=== PATIENT | female | born 1975 | race Caucasian/White ===

== ENCOUNTER → 2024-05-29 13:22 | Outpatient (BNV) | payer OTHER, SELFPAY | PROVIDERS: PCP Family Medicine; Referring Provider Family Medicine; Visit Provider Nurse Practitioner Family | DX: D64.9 Anemia, unspecified (principal) | CPT/HCPCS: 99204 ==

== ENCOUNTER 2024-06-06 15:00 | Outpatient (RCR) | payer OTHER, SELFPAY ==
[2024-05-30 15:05] VITALS: BP 155/95; PULSE 108; RESP 18; TEMP 36.2
[2024-05-30] MEDS: Magnesium Sulfate/H2O 2 GM/50 ML PIGGYBACK IV (15:15)
[2024-05-30] MEDS: Ferric Carboxymaltose 750 MG in 0.9 % Sodium Chloride 250 ML 530 MG IV (16:09)
[2024-05-30 16:16] VITALS: BP 134/88; PULSE 99; RESP 16
[2024-06-06 15:03] VITALS: BP 146/89; PULSE 117; RESP 18; TEMP 36.2
[2024-06-06 15:18] LABS: Hematocrit 32.8 % (37.0-47.0); Hemoglobin 9.6 g/dl (12.0-16.0); Mean Corpuscular HGB Conc 29.3 g/dl (31.0-35.0); Mean Corpuscular Hemoglobin 20.8 pg (27.0-33.0); Mean Platelet Volume 9.7 fL (9.4-12.3); Platelet Count 432 X10*3/uL (160-400); Red Blood Count 4.62 X10*6/uL (4.20-5.50); Red Cell Distribution Width 22.5 % (11.0-16.0); White Blood Count 12.3 X10*3/uL (4.8-10.8)
[2024-06-06] MEDS: Acetaminophen 325 MG TABLET 650 MG PO (15:20)
[2024-06-06] MEDS: Ferric Carboxymaltose 750 MG in 0.9 % Sodium Chloride 250 ML 1060 MG IV (15:33)
[2024-06-06 15:39] LABS: Alanine Aminotransferase 27 U/L (0-31); Albumin Level 3.9 g/dL (3.5-5.0); Anion Gap 11 (12-20); Aspartate Amino Transferase 34 U/L (5-31); Bilirubin Total 0.4 mg/dL (0.0-1.0); Blood Urea Nitrogen 15 mg/dL (9-16); Calcium 9.5 mg/dL (8.4-10.2); Carbon Dioxide 26 mmol/L (22-29); Chloride 105 mmol/L (96-108); Estimated Glomerular Filt Rate > 60; Glucose Random 157 mg/dL (60-115); Magnesium 1.7 mg/dL (1.6-2.6); Potassium 3.8 mmol/L (3.3-5.1); Sodium 138 mmol/L (135-145); Total Protein 7.5 g/dL (6.5-8.0)
[2024-06-06 15:53] LABS: Ferritin 583 ng/mL (10-250)
[2024-06-06 17:01] LABS: Alkaline Phosphatase 66 U/L (39-117)
== END 2024-06-06 15:57 | disposition home or self-care (01) ==
LOC: HO.INF 15:00
PROVIDERS: Visit Provider Nurse Practitioner Family
DX: D64.9 Anemia, unspecified (principal)
CPT/HCPCS: 36415; 80053; 82728; 83735; 85027; 96365; J1439; J3475

== ENCOUNTER 2024-06-29 09:56 | Outpatient (REF) | payer OTHER, SELFPAY ==
--- OUTSIDE RECORDS SUMMARY | 2024-06-29 09:59 | XMS_ITS | Data Portability ---
Author Organization [facility], , [facility] Address [address] [place] [address] Care Team Providers Care Sba Business Development Officer Name Role Phone STAN JARRELL Primary Care Provide r JENI MONTGOMERY Textile Machine Mechanic [facility] Certified Nurse [facility] Attendant [phone] MILANA ALEXANDER Dialysis Nurse [facility] Dermatologis t ROSANNA BLACKWELL Neurologist [facility] Urologist [facility] Billing Adjudicator [facility] HEMATOLOGY/ONCOLOGY Hemat ology/Oncology Assessment No assessment recorded. Plan of Treatment Reminders Order Date Submit Date Provider Last Modified By Organization Details Last Modified Time Details Appointments LAB Follow-Up 2024 07:20A [facility] Lab Not available Not available Not available LAB Follow-Up 2024 10:00A M [facility] Lab Not available Not available Not available Wellness Visit 30 2024 03:00P M Stan Nelson MD Not available Not available Not available Lab ferritin, serum or plasma 2024 025 [facility], [address] [place], [address], 05/24/2024 11:11:20 iron + total iron-bind ing capacity (TIBC), serum 2024 025 [facility], [address] [place] [address], [id number], 05/24/2024 15:38:45 vitamin B12, serum 2024 025 [facility], [address] [place] [address], [id number], 05/29/2024 14:35:06 retic count, blood 2024 025 [facility], [address] [place] [address], [id number], 05/24/2024 09:55:16 influenza virus A + B + SARS-CoV- 2 (COVID19) Ag panel, rapid IA, upper respirato ry specimen [address] [facility], [address] [place] [address], [id number], 05/10/2024 08:05:37 TSH, serum or plasma 2024 025 [facility], [address] [place] [address], [id number], 06/07/2024 03:01:59 fecal occult blood, immunoass ay, stool - pls mail to pt [address] [facility], [address] [place] [address], [id number], 05/23/2024 15:41:05 TSH, serum or plasma 2024 025 [facility], [address] [place] [address], [address], 04/10/2024 14:50:35 HbA1c (hemoglob in A1c), blood 2024 025 [facility], [address] [place] [address], [id number], 04/10/2024 12:53:48 CBC 2024 025 [facility], [address] [place] [address], [id number], 04/10/2024 11:18:00 BMP, serum or plasma 2024 [facility], [address] [place] [address], [id number], 04/11/2024 15:35:17 Referral gastroent erologist referral - microcyti c anemia since 2021. ? GI source. 2024 025 YRN Not available 06/28/2024 09:49:52 Procedures None recorded. Surgeries None recorded. Imaging None recorded. Medication Orders Symbicort 160 mcg-4.5 mcg/actua tion HFA aerosol inhaler 2024 [facility] [id number], [address] [place] [address], [id number], 05/22/2024 16:57:23 Ozempic 1 mg/dose (4 mg/3 mL) subcutane ous pen injector 2024 [id number], [address], [place], [id number], 04/12/2024 16:16:35 Slow Fe 137 mg (45 mg iron) tablet,ex tended release 2024 [facility] #[id number], [address], [place], [id number], 04/12/2024 16:00:05 Patient TargetsNo targets recorded. Patient Instructions Encounter Date Encounter Id Patient Instructions Last Modified By Organization Details Last Modified Time 04/12/2024 [id number] Follow-up in one month to assess response to changes in medication. Blood work in two months to check TSH. [email or web address] Not available 04/14/2024 09:06:51 [email or web address] Not available 04/14/2024 09:06:53 Reason for Referral Billing Adjudicator Referral for Nausea and vomiting microcytic anemia since 2021. ? GI source. Referring Physician: Nicolás Dwyer, Family Medicine, Encounter Date: 05/22/2024 Results Created Date Observation Date Name Description Value Unit Range Abnormal Flag Note LastModifiedBy Organization Detail LastModifiedTime 04/10/1904/10/2024 CBC WBC 9.79 K/? ? ?L 3.98-1 0.04 Not Available [address], [address], 04/10/2024 11:18:00 04/10/1904/10/2024 CBC RBC 4.33 M/? ? ?L 3.93-5 .22 Not Available [address], [address], 04/10/2024 11:18:00 04/10/1904/10/2024 CBC HGB 8.4 g/dL 11.2-1 5.7 low Not Available [address], [address], 04/10/2024 11:18:00 04/10/1904/10/2024 CBC HCT 30.1 % 34.1-4 4.9 low Not Available [address], [address], 04/10/2024 11:18:00 04/10/19 25 04/10/2024 CBC MCV 69.5 fL 79.4-9 4.8 low Not Available [address], [address], 04/10/2024 11:18:00 04/10/1904/10/2024 CBC MCH 19.4 pg 25.6-3 2.2 low Not Available [address], [address], 04/10/2024 11:18:00 04/10/19 25 04/10/2024 CBC MCHC 27.9 g/dL 32.2-3 5.5 low SREV= Slide revie wed by [facility]. Not Available [address], [address], 04/10/2024 11:18:00 04/10/1904/10/2024 CBC plt 466 K/? ? ?L 182-36 9 high Not Available [address], [address], 04/10/2024 11:18:00 04/10/1904/10/2024 CBC MPV 10.5 fL 9.4-12 .3 Not Available [address], [address], 04/10/2024 11:18:00 04/10/1904/10/2024 CBC neut% 69.2 % 34.0-7 1.1 Not Available [address], [address], 04/10/2024 11:18:00 04/10/1904/10/2024 CBC neut# 6.77 1.56-6 .13 high Not Available [address], [address], 04/10/2024 11:18:00 04/10/1904/10/2024 CBC lymph % 22.2 % 19.3-5 1.7 Not Available [address], [address], 04/10/2024 11:18:00 04/10/1904/10/2024 CBC lymph # 2.17 K/? ? ?L 1.18-3 .74 Not Available [address], [address], 04/10/2024 11:18:00 04/10/1904/10/2024 CBC mono% 5.6 % 4.7-12 .5 Not Available [address], [address], 04/10/2024 11:18:00 04/10/1904/10/2024 CBC mono# 0.55 0.24-0 .56 Not Available [address], [address], 04/10/2024 11:18:00 04/10/1904/10/2024 CBC eo% 1.8 % 0.7-5. 8 Not Available [address], [address], 04/10/2024 11:18:00 04/10/1904/10/2024 CBC eo# 0.18 0.04-0 .36 Not Available [address], [address], 04/10/2024 11:18:00 04/10/1904/10/2024 CBC baso% 0.8 % 0.1-1. 2 Not Available [address], [address], 04/10/2024 11:18:00 04/10/1904/10/2024 CBC baso# 0.08 0.00-0 .08 Not Available [address], [address], 04/10/2024 11:18:00 04/10/1904/10/2024 CBC RDW-CV 17.1 % 11.7-1 4.4 high Not Available [address], [address], 04/10/2024 11:18:00 04/10/1904/10/2024 CBC Ig% 0.400 % 0.000- 1.500 Ig % >0.5 Indic ates possi ble Left Shift Not Available [address], [address], 04/10/2024 11:18:00 04/10/1904/10/2024 CBC Ig# 0.040 0.000- 0.093 Not Available [address], [address], 04/10/2024 11:18:00 04/10/19 25 04/10/2024 CBC NRBC% 0.0 % 0.0-0. 2 Not Available [address], [address], 04/10/2024 11:18:00 04/10/19 25 04/10/2024 CBC NRBC# 0.000 0.000- 0.012 Not Available [address], [address], 04/10/2024 11:18:00 04/10/19 25 04/10/2024 HGB A1C hemoglobin A1C 9.5 % 4.8-6. 0 high Goal: <7% in Patie nts with Diabe gomez An A1c betwe en 5.7-6 .4% is ident ified as pre-d iabet es and sugge sts risk for progr essio n to diabe gomez Two a1c value s of 6.5% or highe r is consi stent with a diagn osis of diabe gomez but may need furth er confi rmati on Not Available [address], [address], 04/10/2024 12:53:48 04/10/19 25 04/10/2024 HGB A1C estimated average glucose 226.0 mg/dL Not Available [address], [address], 04/10/2024 12:53:48 04/10/1904/10/2024 TSH TSH 5.24 uIU/m L 0.50-6 .00 The Ameri can Colle ge of Endoc rinol ogy and Ameri can Thyro id Assoc iatio n recom mend goal TSH value s betwe en 0.4-4 .0 mIU/m L. Not Available [address], [address], 04/10/2024 14:50:35 04/10/19 25 04/11/2024 MICRO ALBUM IN/CR EATIN INE RATIO PANEL , URINE microalbumin 589.1 mg/L 1.3-20 .0 high VERD= Verif ied by Dilut ion. Not Available [address], [address], 04/11/2024 12:11:40 04/10/19 25 04/11/2024 MICRO ALBUM IN/CR EATIN INE RATIO PANEL , URINE creatinine urine 198.6 mg/dL 30.0-1 25.0 high Not Available [address], [address], 04/11/2024 12:11:40 04/10/19 25 04/11/2024 MICRO ALBUM IN/CR EATIN INE RATIO PANEL , URINE microalb/cre at ratio 296.6 mg/g_ creat 0.0-29 .0 high Not Available [address], [address], 04/11/2024 12:11:40 04/10/19 25 04/11/2024 BASIC METAB OLIC PANEL glucose 140 mg/dL 70-100 high Not Available [address], [address], 04/11/2024 15:35:17 04/10/19 25 04/11/2024 BASIC METAB OLIC PANEL BUN 12 mg/dL 7-18 Not Available [address], [address], 04/11/2024 15:35:17 04/10/19 25 04/11/2024 BASIC METAB OLIC PANEL creatinine 0.8 mg/dL 0.8-1. 3 Not Available [address], [address], 04/11/2024 15:35:17 04/10/19 25 04/11/2024 BASIC METAB OLIC PANEL B/C 15.0 ratio Not Available [address], [address], 04/11/2024 15:35:17 0104/11/2024 BASIC METAB OLIC PANEL GFR >=60ML /MIN mL/mi n normal >=60m L/min - Alia l or midly reduc ed <60mL /min- Decre ased kidne y funct ion <15mL /min - Kidne y failu re [facility] calcu lates estim ated Glome rular Filtr ation Rate (eGFR ) using the Chron ic Kidne y Disea se Epide miolo gy Colla borat ion (CKD- EPI) Equat ion (Inke r et. al 2020) as recom patt d by the Natio nal Kidne y Found ation . eGFR is based on age, serum creat inine , and sex. CKD-E PI does not calcu late eGFR by race, does not apply to child omero (age <18 years ), and shoul d not be used in pregn markus. Not Available [address], [address], 04/11/2024 15:35:17 04/10/1904/11/2024 BASIC METAB OLIC PANEL sodium 142 mmol/ L 136-14 5 Not Available [address], [address], 04/11/2024 15:35:17 04/10/19 25 04/11/2024 BASIC METAB OLIC PANEL potassium 3.8 mmol/ L 3.5-5. 1 Not Available [address], [address], 04/11/2024 15:35:17 04/10/1904/11/2024 BASIC METAB OLIC PANEL chloride 100 mmol/ L 96-107 Not Available [address], [address], 04/11/2024 15:35:17 04/10/1904/11/2024 BASIC METAB OLIC PANEL anion gap 12.5 5.0-15 .0 Not Available [address], [address], 04/11/2024 15:35:17 04/10/1904/11/2024 BASIC METAB OLIC PANEL CO2 30 mmol/ L 21-32 Not Available [address], [address], 04/11/2024 15:35:17 04/10/19 25 04/11/2024 BASIC METAB OLIC PANEL calcium 8.8 mg/dL 8.5-10 .3 Not Available [address], [address], 04/11/2024 15:35:17 04/10/1904/11/2024 LIPID PANEL cholesterol 191 mg/dL <200 mg/dl Lynn able 200-2 39 mg/dl Borde rline High >240 mg/dl High Not Available [address], [address], 04/11/2024 15:35:18 04/10/1904/11/2024 LIPID PANEL triglyceride s 135 mg/dL <150 mg/dL Alia l 150-1 99 mg/dL Borde rline High 200-4 99 mg/dL High >500 mg/dL Very High Not Available [address], [address], 04/11/2024 15:35:18 04/10/1904/11/2024 LIPID PANEL direct HDL 40 mg/dL <40 mg/dl - Major Risk for CHD >60 mg/dl - Negat zully Risk for CHD Not Available [address], [address], 04/11/2024 15:35:18 04/10/1904/11/2024 LDL - CALCU LATED LDL - calculated 124 RISK CATEG ORY LDL GOAL _ CHD or CHD Risk Equiv alent s <100 mg/dl (10-y ear risk >20%) 2+ Risk Facto rs <130 mg/dl (10-y ear risk <= 20%) 0-1 Risk Facto r? <160 mg/dl ? Almos t all peopl e with 0-1 risk facto r have a 10 year risk <10%, thus 10 year risk asses ment in peopl e with 0-1 risk facto r is not chelita escobar. Not Available [address], [address], 04/11/2024 15:35:19 05/09/1905/09/2024 POC FLU/S ARS flu A POC NEGATI VE Not Available [facility] [address] [place] [address], [address], 05/09/2024 16:06:13 05/09/1905/09/2024 POC FLU/S ARS flu B POC POSITI VE positive Not Available [facility] [address] [place] [address], [address], 05/09/2024 16:06:13 05/09/1905/09/2024 POC FLU/S ARS sars POC NEGATI VE Not Available [facility] [address] [place] [address], [address], 05/09/2024 16:06:13 05/23/1905/24/2024 HGB A1C hemoglobin A1C 8.3 % 4.8-6. 0 high Goal: <7% in Patie nts with Diabe gomez An A1c betwe en 5.7-6 .4% is ident ified as pre-d iabet es and sugge sts risk for progr essio n to diabe gomez Two a1c value s of 6.5% or highe r is consi stent with a diagn osis of diabe gomez but may need furth er confi rmati on Not Available [address], [address], 05/24/2024 09:29:13 05/23/19 25 05/24/2024 HGB A1C estimated average glucose 191.5 mg/dL Not Available [address], [address], 05/24/2024 09:29:13 05/23/19 25 05/24/2024 RBC MORPH OLOGY hypochrom Few Not Available [address], [address], 05/24/2024 09:54:30 05/23/19 25 05/24/2024 RBC MORPH OLOGY micro Modera te Not Available [address], [address], 05/24/2024 09:54:30 05/23/19 25 05/24/2024 CBC WBC 10.61 K/? ? ?L 3.98-1 0.04 high Not Available [address], [address], 05/24/2024 09:55:15 05/23/19 25 05/24/2024 CBC RBC 4.30 M/? ? ?L 3.93-5 .22 Not Available [address], [address], 05/24/2024 09:55:15 05/23/19 25 05/24/2024 CBC HGB 8.2 g/dL 11.2-1 5.7 low Not Available [address], [address], 05/24/2024 09:55:15 05/23/19 25 05/24/2024 CBC HCT 29.6 % 34.1-4 4.9 low Not Available [address], [address], 05/24/2024 09:55:15 05/23/19 25 05/24/2024 CBC MCV 68.8 fL 79.4-9 4.8 low Not Available [address], [address], 05/24/2024 09:55:15 05/23/19 25 05/24/2024 CBC MCH 19.1 pg 25.6-3 2.2 low Not Available [address], [address], 05/24/2024 09:55:15 05/23/1905/24/2024 CBC MCHC 27.7 g/dL 32.2-3 5.5 low SREV= Slide revie wed by techn jamesjosi mcarthur. Not Available [address], [address], 05/24/2024 09:55:15 05/23/1905/24/2024 CBC plt 443 K/? ? ?L 182-36 9 high Not Available [address], [address], 05/24/2024 09:55:15 05/23/1905/24/2024 CBC MPV 10.8 fL 9.4-12 .3 Not Available [address], [address], 05/24/2024 09:55:15 05/23/1905/24/2024 CBC neut% 64.7 % 34.0-7 1.1 Not Available [address], [address], 05/24/2024 09:55:15 05/23/1905/24/2024 CBC neut# 6.87 1.56-6 .13 high Not Available [address], [address], 05/24/2024 09:55:15 05/23/1905/24/2024 CBC lymph % 26.1 % 19.3-5 1.7 Not Available [address], [address], 05/24/2024 09:55:15 05/23/1905/24/2024 CBC lymph # 2.77 K/? ? ?L 1.18-3 .74 Not Available [address], [address], 05/24/2024 09:55:15 05/23/19 25 05/24/2024 CBC mono% 6.0 % 4.7-12 .5 Not Available [address], [address], 05/24/2024 09:55:15 05/23/19 25 05/24/2024 CBC mono# 0.64 0.24-0 .56 high Not Available [address], [address], 05/24/2024 09:55:15 05/23/19 25 05/24/2024 CBC eo% 2.1 % 0.7-5. 8 Not Available [address], [address], 05/24/2024 09:55:15 05/23/1905/24/2024 CBC eo# 0.22 0.04-0 .36 Not Available [address], [address], 05/24/2024 09:55:15 05/23/1905/24/2024 CBC baso% 0.8 % 0.1-1. 2 Not Available [address], [address], 05/24/2024 09:55:15 05/23/1905/24/2024 CBC baso# 0.08 0.00-0 .08 Not Available [address], [address], 05/24/2024 09:55:15 05/23/1905/24/2024 CBC RDW-CV 17.2 % 11.7-1 4.4 high Not Available [address], [address], 05/24/2024 09:55:15 05/23/19 25 05/24/2024 CBC Ig% 0.300 % 0.000- 1.500 Ig % >0.5 Indic ates possi ble Left Shift Not Available [address], [address], 05/24/2024 09:55:15 05/23/1905/24/2024 CBC Ig# 0.030 0.000- 0.093 Not Available [address], [address], 05/24/2024 09:55:15 05/23/1905/24/2024 CBC NRBC% 0.0 % 0.0-0. 2 Not Available [address], [address], 05/24/2024 09:55:15 05/23/1905/24/2024 CBC NRBC# 0.000 0.000- 0.012 Not Available [address], [address], 05/24/2024 09:55:15 05/23/1905/24/2024 RETIC ULOCY TE COUNT reticulocyte count,auto 1.35 % 0.50-1 .70 Not Available [address], [address], 05/24/2024 09:55:16 05/23/1905/24/2024 RETIC ULOCY TE COUNT reticulocyte , absolute 0.0581 cells /uL 0.0164 -0.077 6 Not Available [address], [address], 05/24/2024 09:55:16 05/23/1905/24/2024 RETIC ULOCY TE COUNT irf% 21.7 % 3.0-15 .9 high Not Available [address], [address], 05/24/2024 09:55:16 05/23/1905/24/2024 RETIC ULOCY TE COUNT ret-he 21.3 pg 28.2-3 5.7 low Not Available [address], [address], 05/24/2024 09:55:16 05/23/19 25 05/24/2024 JUSTIN TIN ferritin 5 NG/mL 15-200 low YELENA=V erifi ed by Analisa campos Not Available [address], [address], 05/24/2024 11:11:20 05/23/19 25 05/24/2024 IRON PANEL iron 17 ug/dL 35-150 low Not Available [address], [address], 05/24/2024 15:38:45 05/23/19 25 05/24/2024 IRON PANEL T.I.B.C. 400 ug/dL 250-45 0 Not Available [address], [address], 05/24/2024 15:38:45 05/23/19 25 05/24/2024 IRON PANEL % saturation 4.3 % Not Available [address], [address], 05/24/2024 15:38:45 05/23/19 25 05/29/2024 VITAM IN B12 vitamin B12 411 pg/mL 230-10 50 Not Available [address], [address], 05/29/2024 14:35:06 06/12/19 25 06/12/2024 ANATO SHINE PATHO LOGY path report [facility] [address] [facility] [place] [address] Lab Direc tor: Erlin galeas MD Surgi joseph Patho logy Repor t Acces maggy #: [id number] FINAL PATHO LOGIC DIAGN OSIS: A. DUODE NUM, BIOPS Y: Intac t villo us archi tectu re with incre ased intra epith elial lymph ocyte s, nonsp ecifi c. Serol ogic corre latio n recom patt d. B. STOMA CH ANTRU M, POLYP S X 2: Two mildl y infla med hyper plast ic polyp s, 1 with focal intes tinal metap lasia . Negat zully for dyspl mike. C. STOMA CH ANTRU M, BIOPS Y: No patho logic abnor malit y. D. DISTA L ESOPH MERARY, BIOPS Y: Alia l squam ous mucos a. Katty ctron icall y Nida d Out By Erlin galeas MD By his/h er signa turbillie above , the patho logis t liste d as zara osorio the Final Diagn osis certi fies that he/sh e has perso gregorio revie wed this case and confi rmed or corre cted the diagn osis. [facility] Iron defic iency anemi a, Nause a with vomit ing SPECI MENS SUBMI TTED: A: DUODE NUM, BIOPS Y B: STOMA CH ANTRU M, POLYP S X 2 C: STOMA CH ANTRU M, BIOPS Y D: DISTA L ESOPH MERARY, BIOPS Y GROSS DESCR IPTIO N A. DUODE NUM, BIOPS Y: Recei laura in forma rachelle are multi ple irreg ular li-p ink soft tissu e fragm ents varyi ng in size from 0.1 x 0.1 x 0.1 cm up to 0.3 x 0.2 x 0.2 cm which are submi tted in toto in a singl e casse tte label ed A1. B. STOMA CH ANTRU M, POLYP S X 2: Recei laura in forma rachelle are 2 irreg ular li-p ink soft tissu e fragm ents measu ring 0.3 x 0.2 x 0.2 cm and 0.5 x 0.4 x 0.3 cm which are submi tted in toto in a singl e casse tte label ed B1 C. STOMA CH ANTRU M, BIOPS Y: Recei laura in forma rachelle are 2 irreg ular li-p ink soft tissu e fragm ents measu ring on avera ge 0.4 x 0.2 x 0.1 cm which are submi tted in toto in a singl e casse tte label ed C1. D. DISTA L ESOPH MERARY, BIOPS Y: Recei laura in forma rachelle is a 0.6 x 0.2 x 0.1 cm irreg ular porti on of li-p ink soft tissu e which is submi tted in toto in a singl e casse tte label ed D1. Gross ed by: Gaudencio bueno, MHS, PA( CP) LT 2024 Gross ing Staff : [id number] Yenfier nt Name: EVAN INGRAM : 976 (Age: 48) Sex: F 6 Insti tutio n: [facility] Locat ion: [facility] Date of Opera tion: 2024 Date of Acces maggy: 2024 Repor marcus: 2024 15:02 Resul ts To: Dayo walters MD, AB Anthony en Jonas العراقي MD, BS Not Available [facility] (Out[facility] [address] [place] [address], [address], 06/12/2024 17:52:04 Result Notes None recorded. Problems Name Problem SNOMED Code Status Onset Date Resolution Date Notes Provider Name and Address Organization Details Recorded Time Urinary incontin ence 527006889 Active Not Available [facility] 4 09:29:29 Postoper ative hypothyr oidism 46014979 Active 2007 Not Available [facility] 4 09:29:29 Acute sinusiti s 27342037 Completed 200702/13/2013 Tammy Lui PA-C [address] [place] [address], [phone] , [facility] 9 20:22:48 Urinary tract infectio us disease 23306113 Completed 02/13/2013 Not Available [facility] 3 02:01:58 Primary malignan t neoplasm of thyroid gland 06709978 Completed 200601/06/2023 ESTHER Gonzales [address] [place] [address], [phone] , [facility] 3 16:57:56 Acute pharyngi tis 878930003 Completed 200702/13/2013 Not Available [facility] 3 02:01:18 Amenorrh ea 65356329 Active Not Available [facility] 4 09:29:29 Nutritio nal deficien cy disorder 92320341 Active 2008 Not Available [facility] 4 09:29:30 Malaise and fatigue 776463848 Completed 200802/13/2013 Not Available [facility] 3 02:00:21 Allergic asthma without status asthmati cus 21158381 Active 2007 Not Available [facility] 4 09:29:30 Disorder of hair AND/OR hair follicle Active 2006 Not Available [facility] 4 09:29:29 Vaginiti s and vulvovag initis Completed 02/13/2013 Not Available [facility] 3 02:01:49 Left upper quadrant pain 842984537 Active Not Available [facility] 4 09:29:29 Left lower quadrant pain 642870254 Active Not Available [facility] 4 09:29:29 Acute sinusiti s 42887145 Completed 05/14/2018 Tammy Lui PA-C [address] [place] [address], [phone] , [facility] 9 20:22:48 Exercise -induced asthma 10928671 Active Not Available [facility] 4 09:29:29 Gastroes ophageal reflux disease 153922872 Active Not Available [facility] 4 09:29:29 Migraine with aura 4067440 Active 2017 Not Available [facility] 4 09:29:29 Uncontro lled type 2 diabetes mellitus 335163340 Active 2018 Not Available [facility] 4 09:29:29 Migraine 04059487 Completed 201903/16/2020 Removal Reason: revised Stan Nelson MD [address] [place] [address], [phone] , [facility] 0 11:21:18 Urolithi asis 94809849 Active 2021 Not Available [facility] 4 09:29:30 Pelvic kidney 91498229 Active [address] Falcon Not Available [facility] 4 09:29:30 Congenit al strictur e of ureterop elvic junction 74610212 Active 2021 Incident al on imaging, due to pelvic kidney, Dr Falcon, monitor Not Available [facility] 4 09:29:29 Morbid obesity 553019347 Active 2021 BMI > or = 35 plus diagnosi s of diabetes Not Available [facility] 4 09:29:29 History of malignan t neoplasm of thyroid 622343522 Active 2022 Not Available [facility] 4 09:29:29 Notes:Some problems listed i n Documents: #[id number], #[id number], #[id number], #[id number], #[id number], #[id number], #[id number], #[id number], #[id number] could not be added to this patient's chart. Please review these documents and add these problems to the patient's chart manually as needed. Problem Notes None recorded. Procedures Surgical History Date Name Laterality Status Provider Name and Address Organization Details Recorded Time 04/12/19 25 Cardiovascular disease risk reduction counseling completed Stan Nelson MD [address] [place] [address], [phone], [facility] 04/12/2024 16:03:06 08/07/19 24 Asthma Control Test (12 + years old) completed Stan Nelson MD [address] [place] [address], [id number], [facility] 08/07/2023 09:01:45 05/29/19 24 IV Therapy completed Sue Soriano RN MSN [facility] 05/29/2023 14:28:51 02/15/20 23 Insulin Teaching completed Nighat Carrillo RN BSN [facility] 02/14/2023 15:37:20 01/07/20 23 Cardiovascular disease risk reduction counseling completed ESTHER Gonzales [address] [place] [address], [id number], [facility] 01/06/2023 16:57:18 09/17/19 22 Asthma Control Test (12 + years old) completed Dana Haider [facility] 09/16/2021 09:11:35 09/22/19 21 prevention-cardiov ascular risk reduction counseling cancelled Diana Goff [facility] 09/15/2020 14:45:35 09/22/19 21 prevention-annual alcohol misuse screening cancelled Diana Goff [facility] 09/15/2020 14:45:35 03/16/20 20 Asthma Control Test (12 + years old) [facility]/16[facility] 10:31:08 01/23/20 20 Other (specify) completed Stan Nelson MD [address] [place] [address], [id number], [facility] 01/28/2020 12:54:07 01/23/20 20 Unlisted px accessory sinus completed Genevieve Rodriguez RN [facility] 07/09/2020 11:17:03 09/20/19 20 prevention-cardiov ascular risk reduction counseling completed Count includes the [facility] 09/20/2019 08:30:20 09/20/19 20 prevention-annual alcohol [facility] 08:30[facility]21 03/15/20 19 POC Strep Testing completed Page Mcdaniel [facility] 03/15/2019 09:26:56 03/01/20 19 Obesity counseling completed Stan Nelson MD [address] [place] [address], [phone], [facility] 03/03/2019 14:47:30 06/14/19 19 endoscopy completed Stan Nelson MD [address] [place] [address], [phone], [facility] 08/07/2023 17:12:16 05/26/19 19 Glucose Meter Teaching completed Genesis Mccarty LPN [facility] 05/25/2018 09:58:06 05/21/19 19 Asthma Control Test (12 + years old) completed Naima Muse [facility] 05/21/2018 08:40:19 05/14/19 19 POC Flu Testing completed Elenita Castro [facility] 05/14/2018 10:01:22 04/24/19 19 POC Flu Testing completed Nicolás Dwyer MD [address] [place], [phone], [facility] 04/24/2018 19:11:29 02/22/20 18 POC Strep Testing completed Letty Dill [facility] 02/21/2018 17:10:39 09/23/19 18 IV Therapy completed Shirley Vega [facility] 09/22/2017 17:06:09 11/04/19 17 35722: Therapeutic Exercise completed Bailey Hi, PT [address] [place], [phone], [facility] 11/06/2016 21:45:50 11/04/19 17 82201: Manual Therapy completed Bailey Hi, PT [address] [place], [phone], [facility] 11/06/2016 21:46:02 10/27/19 17 Physical Activity Counselling completed Bailey Hi, PT [address] [place], [phone], [facility] 10/31/2016 22:41:35 10/27/19 17 88397: PT Eval Low Complexity completed Bailey Hi, PT [address] [place], [phone], [facility] 10/31/2016 22:41:31 07/14/19 17 Asthma Control Test (12 + years old) completed Eleniat Castro [facility] 07/13/2016 11:08:31 07/17/19 13 IV Therapy completed Grace Mari [facility] 07/16/2012 13:49:11 03/27/18 96 Removal of thyroid completed Alvina Rubin LPN [facility] 01/05/2017 08:45:51 03/27/18 96 Other (specify) completed Milana Alexander MD [address] [place] [address], [phone], [facility] 01/05/2017 08:53:15 03/27/18 85 Other (specify) completed Milana Alexander MD [address] [place] [address], [phone], [facility] 01/05/2017 08:54:13 03/27/18 80 Removal of adenoids completed Milana Alexander MD [address] [place] [address], [phone], [facility] 01/05/2017 08:52:58 03/27/18 80 Ear Surgery completed Milana Alexander MD [address] [place] [address], [phone], [facility] 01/05/2017 08:53:46 Imaging Results None recorded. Procedure Notes None recorded. Medical Equipment None Reported. Allergies Allergen ID Allergen Name Allergen Category Reaction Reaction Severity Criticality Documentation Date Start Date Code Code System Note Provider Name and Address Organization Details Recorded Time 498444 [place] Thyroid medicatio n Not available Not available Not available 07/09/2020 43700 7 RxNorm low energ y, hair loss, split ting nails Milana Alexander MD [address] [place] [address], [phone], [facility] 1 12:10:22 4223 acetamino phen / oxycodone medicatio n nausea Not available Not available 05/26/2008 57046 3 RxNorm dizzi ness Not Available [facility] 1 06:05:20 Medications Name Sig Start Date Stop Date Status Note LastModified by Organization Details LastModified Time metformin hydrochlo ride er 500 mg tb24 09/24 completed Not Available Not Available Not Available ondansetr on odt 4 mg tbdp 12/10 completed Not Available Not Available Not Available synthroid 75 mcg tabs 06/02 completed Not Available Not Available Not Available methylpre dnisolone dose pack 4 mg tbpk 12/10 completed Not Available Not Available Not Available freestyle mis lite 05/06 completed Not Available Not Available Not Available omeprazol e 20 mg cpdr 12/10 completed Not Available Not Available Not Available amoxicill in/clavul anate potassium 875-125 mg tabs 09/24 completed Not taking 0 LZ Not Available Not Available Not Available freestyle mis lancets 05/06 completed Not Available Not Available Not Available albuterol sulfate hfa 108 (90 base) mcg/act aers 09/16 completed Not Available Not Available Not Available synthroid 175 mcg tabs 06/02 completed Not Available Not Available Not Available doxycycli ne hyclate 100 mg tabs 12/10 completed Not Available Not Available Not Available prednison e 20 mg tabs 12/10 completed Not Available Not Available Not Available Prescript ion - Prior Authoriza tion Request 05/28 completed Not Available Not Available Not Available flovent hfa 110 mcg/act aero 05/06 completed Not Available Not Available Not Available ranitidin e hydrochlo ride 150 mg tabs 09/19 completed Not Available Not Available Not Available freestyle lite blood glucose monito ring system w/device kit 06/01 completed Not Available Not Available Not Available ondansetr on odt 8 mg tbdp 01/21 completed Not Available Not Available Not Available freestyle lite test strips strp 06/01 completed Not Available Not Available Not Available freestyle lancets misc 06/01 completed Not Available Not Available Not Available freestyle gomez lite 05/06 completed Not Available Not Available Not Available proair hfa 108 (90 base) mcg/act aers 12/10 completed Not Available Not Available Not Available azelastin e hydrochlo ride 0.1 % soln 12/10 completed Not Available Not Available Not Available multivita min tablet 2006 active Take 1.00 tabs every day Not Available Not Available Not Available amoxicill in 500 mg capsule Take 1 capsule every 12 hours by oral route for 10 days. 12/19 completed Not Available Not Available Not Available fluconazo le 100 mg tablet active Not Available Not Available Not Available Yvette Thyroid 90 mg tablet Take 1 tablet every day by oral route. 01/21 completed Not Available Not Available Not Available Cortispor in 3.5 mg/mL-10, 000 unit/mL-1 % ear drops,mike pension Instill 4 drops 3 times a day by otic route. 2010 active Not Available Not Available Not Avai lable calcium-m agnesium 500 mg-250 mg tablet 2007 active Not Available Not Available Not Avai lable Synthroid 200 mcg tablet TAKE ONE TABLET BY MOUTH ONCE DAILY FOR 6 DAYS OF THE WEEK AND 2 TABLETS BY MOUTH ONE DAY A WEEK (8 TABLETS PER WEEK) 2023 active Pt taking 1 tab 6x a wk none on the 04/08/24 as Not Available Not Available Not Available sumatript an 100 mg tablet TAKE 1/2 TO 1 TABLET BY MOUTH AT [facility] ... (REFER TO PRESCRIP TION NOTES). 01/21 completed Not Available Not Available Not Available Synthroid 150 mcg tablet Take 1 tablet every day by oral route. 06/15 completed Not Available Not Available Not Available FreeStyle Lancets 28 gauge TEST TWICE A DAY 05/06 completed Not Available Not Available Not Available ondansetr on HCl 4 mg tablet Take 1-2 tablets by mouth every 8 hours as needed for nausea 2012 active Not Available Not Available Not Avai lable Synthroid 125 mcg tablet TAKE 1 TABLET(S ) EVERY DAY BY ORAL ROUTE. 04/24 completed Not Available Not Available Not Available famotidin e 40 mg tablet TAKE 1 TABLET BY MOUTH TWICE DAILY 05/28 completed Not taking 01/06/23 cc Not Available Not Available Not Available prednison e 20 mg tablet TAKE 2 TABLETS BY MOUTH EVERY DAY FOR 5 DAYS 05/14 completed Not Available Not Available Not Available [place] Thyroid 120 mg tablet Take 1 tablet every day by oral route. 07/09 completed Not Available Not Available Not Available pimecroli mus 1 % topical cream APPLY TOPICALL Y TO FACE TWICE DAILY 08/06 completed 08/04/23 yr pt not using Not Available Not Available Not Available Diflucan 150 mg tablet Take 1 tablet every day by oral route for 1 day. 01/01 completed Not Available Not Available Not Available sumatript an 50 mg tablet TAKE 1 TABLET ON THE ONSET IF NO RESPONSE IN 2 HOURS TAKE 1 MORE TABLET 02/21 completed Not Available Not Available Not Available Vitamin B-12 500 mcg tablet 2007 active Not Available Not Available Not Avai lable Zyrtec 10 mg tablet Take 1 tablet every day by oral route. active Not Available Not Available No t Available sulfameth oxazole 800 mg-trimet hoprim 160 mg tablet 02/21 completed Not Available Not Available Not Available liothyron ine 5 mcg tablet TAKE 1 TABLET BY MOUTH TWICE A DAY OR 2 TABLETS ONCE IN THE MORNING. 04/24 completed Not Available Not Available Not Available triamcino lone acetonide 0.1 % topical cream 01/01 completed Not Available Not Available Not Available amoxicill in 500 mg tablet Take 1 tablet every 12 hours by oral route for 10 days. 07/18 completed Not Available Not Available Not Available ondansetr on 8 mg disintegr ating tablet 2024 active Not Available Not Available Not Avai lable ketorolac 10 mg tablet one every 8 hours prn 06/01 completed [facility] D/C Not Available Not Available Not Available Synthroid 175 mcg tablet TAKE ONE TABLET BY MOUTH ONCE DAILY 09/19 completed Not Available Not Available Not Available propranol ol 10 mg tablet SEE ATTACHME NT PAPER FOR INSTRUCT IONS 02/21 completed as needed Not Available Not Available Not Available amoxicill in 875 mg tablet TAKE 1 TABLET BY MOUTH TWICE DAILY FOR 10 DAYS 09/16 completed Not Available Not Available Not Available famotidin e 20 mg tablet Take 2 tablets twice a day by oral route. 05/28 completed Not taking 01/06/23 cc Not Available Not Available Not Available amitripty line 25 mg tablet TAKE 1 TABLET BY MOUTH DAILY AT BEDTIME active Not Available Not Available No t Available betametha sone valerate 0.1 % topical cream APPLY A THIN LAYER TO THE AFFECTED AREA(S) BY TOPICAL ROUTE ONCE DAILY 10/11 completed As needed for flare up [id number]- not taking per pt Not Available Not Available Not Available rizatript an 10 mg disintegr ating tablet take 1 tab po as needed for acute migraine and may repeat dose x1 after at least 2h after 04/08 completed Not Available Not Available Not Available econazole nitrate 1 % topical cream APPLY TO AFFECTED TOES/WEB SPACES TWICE DAILY UNTIL RESOLVED . REPEAT NEEDED FOR RECURREN CE 04/08 completed PRN - not taking 12/20/23 Not Available Not Available Not Available cephalexi n 500 mg capsule TAKE ONE CAPSULE BY MOUTH EVERY 8 HOURS FOR 7 DAYS 09/16 completed Not Available Not Available Not Available acetic acid-alum inum acetate 2 % ear drops active Not Available Not Available Not Available ranitidin e 150 mg tablet 07/29 completed hasn't started yet 08/14/19 19 HE Didn't take due to recalls 03/01/19 SD Not Available Not Available Not Available clotrimaz ole-betam ethasone 1 %-0.05 % topical cream active Not Available Not Available Not Available nystatin- triamcino lone 100,000 unit/g-0. 1 % topical cream APPLY TO THE AFFECTED AREA(S) BY TOPICAL ROUTE 3 TIMES PER DAY IN THEMORNI NG AND EVENING FOR 2 WEEKS active Not Available Not Available No t Available Synthroid 75 mcg tablet TAKE 1 TAB EVERY DAY BY ORAL ROUTE - NO SUBS BRAND NAME ONLY 08/06 completed Not Available Not Available Not Available Imitrex 6 mg/0.5 mL subcutane ous solution Inject 6 mg by subcutan eous route. 02/21 completed Not Available Not Available Not Available omeprazol e 20 mg capsule,d elayed release TAKE ONE CAPSULE BY MOUTH TWICE DAILY. 2023 active Pt taking once a day 04/08/24 as Not Available Not Available Not Available diclofena c sodium 75 mg tablet,de layed release 10/21 completed Not Available Not Available Not Available hydrocort isone 2.5 % topical cream 04/08 completed Pt uses PRN 08/07/23 as Not Available Not Available Not Available amoxicill in 250 mg capsule active Not Available Not Available Not Available [place] Thyroid 30 mg tablet One tab daily with the [place] thyroid 90 mg tab to equal daily dose of 120mg. 05/06 completed Not Available Not Available Not Available azelastin e 137 mcg (0.1 %) nasal spray 05/06 completed Not Available Not Available Not Available Cipro HC 0.2 %-1 % ear drops,mike pension Instill 3 drops into affected ear(s) by otic route every 12 hours 2010 active Not Available Not Available Not Avai lable methylpre dnisolone 4 mg tablets in a dose pack Take 6 tabs on day 1, 5 tabs on day 2, 4 tabs on day 3, 3 tabs on day 4, 2 tabs on day 5, 1 tab on day 6 03/15 completed Not Available Not Available Not Available albuterol sulfate HFA 90 mcg/actua tion aerosol inhaler INHALE 2 PUFFS BY MOUTH EVERY 4 HOURS 08/06 completed 08/04/23 yr pt not using Not Available Not Available Not Available ketorolac 60 mg/2 mL intramusc ular solution Inject 1 mL every 6 hours by intramus cular route. 06/01 completed Not Available Not Available Not Available Cipro 250 mg tablet Take 1 tablet every 12 hours by oral route for 3 days. 04/04 completed Not Available Not Available Not Available ketoconaz ole 2 % topical cream 02/21 completed Not Available Not Available Not Available Cortispor in-TC 3.3 mg-3 mg-10 mg-0.5 mg/mL ear drops,mike pension 4 gtts tid-qid x 7-10 days 2010 active Not Available Not Available Not Avai lable ondansetr on 4 mg disintegr ating tablet DISSOLVE 1 TO 2 TABLETS ON THE TONGUE EVERY 12 HOURS NEEDED FOR NAUSEA 08/06 completed duplicat e Not Available Not Available Not Available metformin ER 500 mg tablet,ex tended release 24 hr TAKE 2 TABLETS BY MOUTH ONCE DAILY active Not Available Not Available No t Available doxycycli ne hyclate 100 mg tablet TAKE TWO TABLETS BY MOUTH ONCE A DAY FOR ONE DAY 03/01 completed Not Available Not Available Not Available Phenergan 25 mg/mL injection solution Take 25 mg by injectio n route. 02/21 completed Not Available Not Available Not Available amoxicill in 875 mg-potass ium clavulana te 125 mg tablet TAKE 1 TABLET BY MOUTH TWICE DAILY FOR 10 DAYS 01/06 completed Not Available Not Available Not Available ferrous sulfate 134 mg (27 mg iron) tablet 2007 active Not Available Not Available Not Avai lable cholecalc iferol (vitamin D3) 25 mcg (1,000 unit) capsule 2007 active Take 2.00 caps every day Not Available Not Available Not Available Laxative (bisacody l) 5 mg tablet TAKE 4 TABLETS BY MOUTH THE DAY BEFORE PROCEDUR E active Not Available Not Available No t Available metformin ER 1,000 mg tablet,ex tended release 24hr (osmotic) Take 1 tablet every day by oral route for 30 days. 09/19 completed Not Available Not Available Not Available Flovent HFA 110 mcg/actua tion aerosol inhaler TAKE 1 PUFF BY MOUTH TWICE A DAY 12/10 completed Not Available Not Available Not Available magnesium oxide 400mg twice a day active Not Available Not Available No t Available take 1.00 tab daily active Not Available Not Available No t Available Prevacid active daily Not Available Not Avai lable Not Available ondansetr on HCl (PF) 4 mg/2 mL injection solution Inject 4mg x1 IV 06/01 completed Not Available Not Available Not Available Symbicort 160 mcg-4.5 mcg/actua tion HFA aerosol inhaler INHALE 2 PUFFS TWICE A DAY active Not Available Not Available No t Available FreeStyle Lite Meter kit TEST TWICE A DAY 05/06 completed Not Available Not Available Not Available FreeStyle Lite Strips TEST TWICE A DAY 05/06 completed Not Available Not Available Not Available omega-3 fatty acids-fis h oil 300 mg-1,000 mg capsule,d elayed release 2007 active Not Available Not Available Not Avai lable diclofena c 1 % topical gel 07/13 completed Not Available Not Available Not Available ciproflox acin 0.2 % ear drops in a dropperet te INSTILL 0.25 MILLILIT ER (0.5 MG) INTO AFFECTED EAR (left) BY OTIC ROUTE EVERY 12 HOURS x 7 days active Not Available Not Available No t Available GaviLyte- G 236 gram-22.7 4 gram-6.74 gram-5.86 gram oral solution MIX AND DRINK DIRECTED active Not Available Not Available No t Available Zyrtec 10 mg capsule Take by oral route. 03/28 completed prn Not Available Not Available Not Available fenugreek seed extract active Not Available Not Available Not Available Fluvirin 2123-6407 (PF) 45 mcg (15 mcg x3)/0.5 mL intramusc ular syringe TO BE ADMINIST ERED BY PHARMACI ST FOR IMMUNIZA TION active Not Available Not Available No t Available Injectafe r IV soultion , 750mg weekly x 2 active Not Available Not Available No t Available triamcino lone acetonide 0.1 %-emollie nt combinati on no86 topical cream active Not Available Not Available Not Available potassium chloride ER 20 mEq tablet,ex tended release active Not Available Not Available Not Available Nasacort 55 mcg nasal spray aerosol Take 2 sprays every day by nasal route. 12/10 completed Not Available Not Available Not Available Trulicity 1.5 mg/0.5 mL subcutane ous pen injector INJECT 1.5 MG UNDER THE SKIN ONCE WEEKLY FOR 4 WEEKS AND MAY INCREASE TO 3MG WEEKLY AFTER TOLERATI NG 1.5 MG WEEK FOR AT LEAST 4 WEEKS active Not Available Not Available No t Available Trulicity 0.75 mg/0.5 mL subcutane ous pen injector 07/16 completed Not Available Not Available Not Available cyanocoba carly (vit B-12) 1,000 mcg sublingua l lozenge TAKE 1 TABLET BY MOUTH DAILY FOR 30 DAYS active Not Available Not Available No t Available Ozempic 1 mg/dose (2 mg/1.5 mL) subcutane ous pen injector 1 mg subcut once weekly as tolerate d; if tolerati ng 1mg weekly for a month or more, may increase to 2mg subcut weekly 11/13 completed Not Available Not Available Not Available Ozempic 0.25 mg or 0.5 mg (2 mg/1.5 mL) subcutane ous pen injector 0.25 mg subcut once weekly for 4 weeks then increase to 0.5mg once weekly as tolerate d; may increase to 1 mg once weekly after 2 mo 04/12 completed Not Available Not Available Not Available Flucelvax Quad (PF) 60 mcg (15 mcg x 4)/0.5 mL IM syringe inject 0.5 millilit ers intramus cularly 12/10 completed Not Available Not Available Not Available [facility] ODT 75 mg disintegr ating tablet 08/06 completed 08/04/23 yr pt not taking Not Available Not Available Not Available Ajovy 225 mg/1.5 mL subcutane ous auto-inje ctor 11/08 completed Not Available Not Available Not Available Trulicity 3 mg/0.5 mL subcutane ous pen injector Inject 0.5 mL every week by subcutan eous route for 28 days, for uncontro lled diabetes . 11/08 completed unable to find Not Available Not Available Not Available Trulicity 4.5 mg/0.5 mL subcutane ous pen injector 4.5mg subcut once weekly; this is the maximal dose for trulicit y 05/28 completed Not taking 01/06/23 cc Not Available Not Available Not Available Ozempic 1 mg/dose (4 mg/3 mL) subcutane ous pen injector INJECT 1 MG UNDER THE SKIN ONE DAY A WEEK FOR 28 DAYS active Not Available Not Available No t Available Ozempic 2 mg/dose (8 mg/3 mL) subcutane ous pen injector if tolerati ng 1mg weekly for a month or more, may increase to 2mg subcut weekly 11/13 completed Not Available Not Available Not Available Mounjaro 2.5 mg/0.5 mL subcutane ous pen injector 05/28 completed not covered. Not Available Not Available Not Available Ozempic 0.25 mg or 0.5 mg (2 mg/3 mL) subcutane ous pen injector active Not taking this dose 05/22/24 cc Not Available Not Available Not Available Slow Fe 137 mg (45 mg iron) tablet,ex tended release Take 1 tablet every day by oral route for 90 days, for iron def anemia. 2024 active Not Available Not Available Not Avai lable Vitals Date Recorded Body height Body mass index (BMI) Body weight Heart rate Systolic blood pressure Diastolic blood pressure Provider Name and Address Organization Details Last Updated DateTime 4 163.83 cm 35.3 kg/m2 33717.8 1 g 102 /min 120 mm[Hg] 74 mm[Hg] Deepa Melton [facility] 4 09:31:52 Date Recorded Body height Body mass index (BMI) Body weight Oxygen saturation Oxygen saturation in Arterial blood by Pulse oximetry Heart rate Body temperature Systolic blood pressure Diastolic blood pressure Provider Name and Address Organization Details Last Updated DateTime 5 163.83 cm 34.5 kg/m2 70461.8 4 g 100 % 100 % 98 /min 97.9 [degF] 152 mm[Hg] 100 mm[Hg] Dana Haider [facility] 5 17:22:59 Date Recorded Systolic blood pressure Diastolic blood pressure Provider Name and Address Organization Details Last Updated DateTime 04/08/2024 140 mm[Hg] 90 mm[Hg] Stan Nelson MD [address] [place] [address], [phone] 04/08/2024 17:44:33 Date Recorded Body height Body mass index (BMI) Body weight Body temperature Heart rate Oxygen saturation Oxygen saturation in Arterial blood by Pulse oximetry Systolic blood pressure Diastolic blood pressure Provider Name and Address Organization Details Last Updated DateTime 5 163.83 cm 33.5 kg/m2 08947.3 9 g 98.4 [degF] 122 /min 99 % 99 % 146 mm[Hg] 80 mm[Hg] Ricardo Hook [facility] 5 15:29:36 Date Recorded Body height Body mass index (BMI) Body weight Oxygen saturation Oxygen saturation in Arterial blood by Pulse oximetry Heart rate Systolic blood pressure Diastolic blood pressure Provider Name and Address Organization Details Last Updated DateTime 5 163.83 cm 33.5 kg/m2 07171.3 9 g 97 % 97 % 113 /min 136 mm[Hg] 88 mm[Hg] Betty Rivera [facility] 5 16:31:57 Date Recorded Systolic blood pressure Diastolic blood pressure Systolic blood pressure Diastolic blood pressure Provider Name and Address Organization Details Last Updated DateTime 04/12/2024 142 mm[Hg] 88 mm[Hg] 138 mm[Hg] 82 mm[Hg] Dana Haider [place] [facility] 5 15:38:55 Social History Question Answer Notes LastModified by Organizat ion Details LastModified Time Tobacco Smoking Status Never Smoker Not Available [facility] 02/10/2011 04:51:26 What Is Your Level Of Alcohol Consumption? None [email or web address] Information not available 01/22/2020 Do You Wear A Helmet When Biking? Yes Information not available 12/05/2014 What Is Your Level Of Caffeine Consumption? Occasional Coffee And Tea Information not available 02/24/2014 What Type Of Diet Are You Following? REGULAR Information not available 02/24/2014 Which Illicit Or Recreational Drugs Have You Used? None Information not available 12/05/2014 Do You Or Have You Ever Used E-cigarettes Or Vape? 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 0 Information not available 12/05/2014 Are There Any Guns Present In Your Home? No Information not available 02/24/2014 Live Alone Or With Others? With Others Information not available 02/24/2014 Patient Has Health Care Proxy Signed And In Chart Yes Forms Given 12/05/2014 [email or web address] Information not available 09/21/2021 DM Disease Process Post-needs Review 06/13/18 Information not available 05/28/2018 Nutrition Post-needs Review 06/13/18 Information not available 06/14/2018 Physical Activity Post-needs Review 06/13/18 Information not available 05/28/2018 Medications Post-needs Review 06/13/18 Information not available 05/28/2018 Monitoring Post-shows Competency 06/13/18 Information not available 06/14/2018 Acute Complications Not Assessed Information not available 06/14/2018 Chronic Complications Not Assessed Information not available 06/14/2018 Coping Pre-grasps [place] Points 06/13/18 Information not available 05/28/2018 Behavior Change Pre-grasps [place] Points 06/13/18 Information not available 05/28/2018 DSME Plan Goal Monitoring: Continue To Test Blood Sugar 2x/day Information not available 06/14/2018 DSME Plan Goal Success Initiated Information not available 05/28/2018 DSME Plan Goal Evaluation: 06/13/2018 Information not available 06/14/2018 DSME Plan Initiated: 05/28/2018 MNT X 3; Dates Seen: 05/28; DSME Date Seen: 06/13/18 Information not available 05/28/2018 DSME Plan Status In Progress - Information not available 05/28/2018 Diabetes Ed Classes Discussed Decined Signed Up For [facility] Class Information not available 05/28/2018 Marital Status 13 Yrs melissa Inf ormation not available 12/05/2014 Mosquito Repellent Used Routinely Yes Information not available 12/05/2014 What Was The Date Of Your Most Recent Tobacco Screening? 05/22/2024 [email or web address] Information not available 05/22/2024 How Many Children Do You Have? 2 2009, 2012 [email or web address] Information not available 07/06/2010 What Is Your Relationship Status? PT; Used To Be A [employer] Faller [email or web address] Information not available 08/07/2023 Seat Belts Used Routinely Yes Information not available 02/24/2014 Are You Sexually Active? Yes Information not available 02/24/2014 Smoke Alarm In Home Yes Information not available 02/24/2014 Do You Or Have You Ever Used Smokeless Tobacco? Never Used Smokeless Tobacco [email or web address] Information not available 03/15/2019 How Much Tobacco Do You Smoke? No [email or web address] Information not available 03/15/2019 What Types Of Sporting Activities Do You Participate In? None Information not available 12/05/2014 General Stress Level High Information not available 12/05/2014 Do You Use Sunscreen Routinely? Yes Information not available 12/05/2014 How Many Years Have You Smoked Tobacco? 0 [email or web address] Information not available 03/15/2019 Do You Or Have You Ever Used Any Other Forms Of Tobacco Or Nicotine? No [email or web address] Information not available 09/16/2021 Sex: Unknown Functional Status None recorded. Mental Status None recorded. Family History Relationship Description Onset Age of this Age Resolved Age Notes LastModified by Organization Details LastModified Time Mother Injury of kidney 30 gomeru ky martinez [employer] Not available 12/05/2014 10:32:21 Mother Transplant of kidney due to strep infect ion [employer] Not available 08/07/2023 09:07:36 Mother Malignant lymphoma 78 [email or web address] Not available 08/04/2023 16:35:55 Father Diabetes mellitus 55 early [employer] Not available 12/05/2014 10:32:21 Notes:Renal/Genitourinary: M at Fam Hx of renal ds - MGM, mother MatGF stomach cancer other (enter) : MOTHER: kidney ds. ? nephritis hx of eclampsia. asthma. FATHER: diabetes. only child Medical History Condition Response CANCER Y Hypothyroid Y GERD Y Migraine Headaches Y Gynecological History Statement/Question Response Menses Monthly Y History of Abnormal Pap No Current Control Method Partner Vas ectomy Approximate Obstetrics History GPAL:G 0 P 0 0 0 0 Immunizations Vaccine Type Date Status Note Provider Nam e and Address Organization Details Recorded Time influenza, unspecified formulation 7 completed Not Available [facility] 04/23/2023 09:29:30 Tdap 8 completed Not Available [facility] 04/23/2023 09:29:30 influenza, unspecified formulation 0 completed Not Available [facility] 04/23/2023 09:29:30 Influenza, split virus, trivalent, PF 4 completed Not [facility] 04/13/2019 02:33:41 Influenza, split virus, quadrivalent, PF 5 completed Not Available [facility] 04/13/2019 02:30:30 influenza, unspecified formulation 4 completed Not Available [facility] 04/23/2023 09:29:30 Influenza, split virus, quadrivalent, PF 8 completed Not Available [facility] 04/13/2019 02:28:44 Td (adult), 2 Lf tetanus toxoid, preservative free, adsorbed 8 completed Not Available [facility] 04/13/2019 02:22:34 Influenza, split virus, quadrivalent, PF 8 completed Not Available [facility] 04/13/2019 02:38:08 pneumococcal polysaccharide PPV23 9 completed Not Available [facility] 04/13/2019 02:34:18 Influenza, split virus, quadrivalent, PF 0 completed [facility]/16/2020 16:51:37 COVID-19 vaccine, vector-nr, rS-ChAdOx1, PF, 0.5 mL 1 completed Not Available [facility] 04/23/2023 09:29:30 COVID-19 vaccine, vector-nr, rS-Ad26, PF, 0.5 mL 1 completed Not Available [facility] 04/23/2023 09:29:30 Influenza, split virus, quadrivalent, PF 3 completed ESTHER Gonzales [address] [place] [address], [address], [facility] 01/06/2023 16:53:32 Influenza, MDCK, quadrivalent, PF 0 completed [facility] 08/07/2023 08:52:05 COVID-19, mRNA, LNP-S, PF, 100 mcg/0.5mL dose or 50 mcg/0.25mL dose 1 completed [facility] 08/07/2023 08:52:05 COVID-19, mRNA, LNP-S, PF, 100 mcg/0.5mL dose or 50 mcg/0.25mL dose 1 completed [facility] 08/07/2023 08:52:05 COVID-19, mRNA, LNP-S, PF, 100 mcg/0.5mL dose or 50 mcg/0.25mL dose [address] [facility] 08/07/2023 08:52:05 COVID-19, mRNA, LNP-S, bivalent, PF, 30 mcg/0.3 mL dose 2 completed [facility] 08/07/2023 08:52:05 DTaP 3 completed [facility] 08/07/2023 08:52:05 Influenza, split virus, quadrivalent, PF 2 completed [facility] 08/07/2023 08:52:05 Past Encounters Encounter ID Performer Location Encounter Start Date Encounter Closed Date Diagnosis/Indication Diagnosis SNOMED-CT Code Diagnosis ICD10 Code Diagnosis Note [id number] RABIA [facility], OFFICE [address] [facility] [address] 02/13/2007 11:19:13 04/16/2008 02:02:29 [id number] RABIA [facility], OFFICE [address] [place] [address] [place] [address] 10/09/2007 10:31:34 04/16/2008 02:02:29 [id number] [facility], OFFICE [address] [facility] [place] [address] 03/05/2008 11:09:16 04/16/2008 02:02:29 [id number] [facility], OFFICE [address] [place] [address] [place] [address] 05/26/2008 14:46:26 06/02/2008 08:30:24 [id number] [facility], OFFICE [address] [place] [address] [place] [address] 08/26/2008 14:16:49 08/29/2008 12:14:00 [id number] LAB - [address] [place] [address] 05/27/2008 10:36:17 05/27/2008 10:36:26 [id number] LAB - [address] [place] [address] 08/26/2008 08:21:02 08/26/2008 08:44:55 [id number] RABIA [facility], OFFICE [address] [facility] [place] [address] 03/30/2009 09:40:21 04/03/2009 09:23:21 [id number] , [facility], OFFICE [address] [facility] [place] [facility] [address] 04/01/2010 09:15:57 04/08/2010 08:46:21 [id number] , [facility], OFFICE [address] [place] [address] 06/13/2010 10:19:42 06/14/2010 09:37:13 [id number] , [facility], OFFICE [address] [place] [facility] [address] 07/06/2010 08:41:19 07/09/2010 13:40:40 [id number] , [facility], [facility] [address] [facility] [place] [facility] [address] 07/08/2010 12:01:53 07/13/2010 09:37:18 [id number] [facility], OFFICE [address] [facility] [place] [facility] [address] 07/19/2010 09:05:31 07/21/2010 12:36:34 [id number] [facility], OFFICE [address] [place] [facility] [address] 08/26/2010 15:54:36 08/27/2010 14:19:38 [id number] Rocio Ahn , [facility], OFF[facility] [address] [facility] [place] [facility] [address] 06/13/2012 09:08:46 06/13/2012 10:10:50 [id number] Joey Alejo MD Radiology , [facility] [address] [facility] [place] [facility] [address] 06/13/2012 10:11:31 06/14/2012 10:32:16 [id number] Ana Childress , [facility], OFFICE [address] [place] [facility] [address] 07/16/2012 10:18:25 07/16/2012 13:56:10 [id number] Evan Brownlee , [facility], OFFICE [address] [place] [facility] [address] 07/17/2012 09:24:44 07/17/2012 09:55:53 [id number] Igor Zaldivar DPM Podiatry, [address] [address] 07/24/2012 09:59:29 07/24/2012 10:49:29 [id number] Igor Zaldivar [facility] Podiatry, [address] [address] 08/21/2012 09:59:02 08/21/2012 14:48:58 [id number] , [facility], OFFICE [address] [place] [address] 05/23/2013 09:53:58 05/23/2013 10:36:27 Left upper quadrant pain 253894309 [id number] , [facility], OFFICE [address] [place] [address] 05/30/2013 15:41:06 05/31/2013 14:25:48 Exercise-induced asthma 13388245 Left lower quadrant pain 169817788 Left upper quadrant pain 265408525 [id number] , [facility], OFFICE [address] [place] [address] 08/23/2013 15:39:54 08/23/2013 16:31:51 Otalgia 66719209 Hypothyroidism 21746561 HELLP syndrome 94489138 she had this during [id number] Kim Zavala CMA , [facility], OFFICE [address] [place] [address] 02/24/2014 14:50:54 02/24/2014 16:54:21 Influenza vaccine needed [id number] 106 Otitis externa 4051435 C ase d/w and pt seen by Dr Dwyer DDx includes ? seborrheic dermatitis ,atopic dermatitis , fungal infection, bacterial infection, chronic unresolved OE vs several acute infections Has seen ENT If this does not resolve, ? culture, ? derm referral Pt will RTC in 1 week or sooner if symptoms worsen/per sist Gastroesop hageal reflux disease [id number] Rochelle Dixon LPN , [facility], OFFICE [address] [place] [address] 04/24/2014 13:43:19 04/24/2014 14:11:53 Acute sinusitis 15121431 [id number] Stan Nelson MD , [facility], OFFICE [address] [place] [address] 07/11/2014 13:27:26 07/11/2014 14:14:48 Upper respiratory infection 08401092 likely viral. Trial of rest, fluids and ibuprofen 400-600mg every 6 hours as needed. Dayquil and nyquil over the counter as instructed . To call office if symptoms worsen or do not improve and symptoms last >10-14 days unlikely strep as constituat ional sx, +cough, no exudates; no fever; +mildly tender cervical lad (reactive) Gastroenteritis 81613503 likely viral; rest and hydration schumacher and good hand hygiene declines note for work Otalgia 47520478 pt concerned about her L ear symptoms, no obvious acute issue but if this progresses in the next 1-2 days, she can use cipro bid x 7 days. [id number] Stan Nelson MD , [facility], OFFICE [address] [place] [address] 07/14/2014 14:19:39 07/14/2014 15:21:20 Upper respiratory infection 85609060 [id number] , [facility], OFFICE [address] [place] [address] 12/05/2014 09:45:17 12/05/2014 10:59:25 Adult health examination 065120489 see Risk Assessment and Lifestyle Change Counseling section above Counseling [id number] Exercise-i nduced asthma 56405079 Influenza vaccine needed 9240049978 106 External hemorrhoids 32354613 Postoperat zully hypothyroidism 40773233 Gastroesop hageal reflux disease 922611882 Morbid obesity 094194860 [id number] OZIEL Solano , [facility], OFFICE [address] [place] [address] 05/25/2016 16:26:57 05/26/2016 12:57:50 Acute sinusitis 04650426 J01.90 -augmentin as directed with food-probi otic or yogurt daily while taking antibiotic -ibuprofen for pain-push fluids-fol low up if needed Migraine 61465311 G43.90 9 -refilled [id number] OZIEL Solano , [facility], OFFICE [address] [place] [address] 07/13/2016 10:58:28 07/13/2016 12:02:20 Intrinsic asthma 052247232 J45.20 INTERMITTE NT Asthma- Based on history, physical assessment and peak flow the patients asthma is in control. Will continue the present medication s and follow-up in 6 months. The asthma action plan has been discussed. The patient verbalizes understand ing medication use.. The patient is in agreement with this plan. Counseling 979916909 Z71 .9 Healthy lifestyle changes may help you feel better. Get at least 30 minutes of exercise on most days of the week. Walking is a good choice. Eat a healthy diet. Include fruits, vegetables , lean proteins, and whole grains in your diet each day. Keep a regular sleep schedule. Try for 8 hours of sleep a night. Find ways to manage stress, such as relaxation exercises, 4-7-8 breathing exercise. Avoid alcohol and illegal drugs; Avoid caffeine if having trouble w/ sleeping. Adult [facility] th examination 171454630 Z00.00 see Risk Assessment and Lifestyle Change Counseling section above Allergic a sthma without status asthmaticus 92355935 J45.909 refilled because current one is Body mass index 30+ - obesity 449995389 Z68.39 labs pendingref erred to Betty for anti inflammato ry diet to see if this would help with the thyroid and generalize diet to loose weight Liver enzy mes level above reference range 764313582 R74.8 has had elevated livers in the past with HELP syndrome Screening mammography 24 737535 Z12.31 mammo screening [id number] Betty Chandler, Ms, Rdn, Ldn, CDE Nutrition -[address] [address] 09/12/2016 15:36:28 09/12/2016 16:33:19 Body mass index 30+ - obesity 139284299 Z68.39 [id number] OZIEL Solano , [facility], OFFICE [address] [place] [address] 10/21/2016 09:16:09 10/21/2016 10:35:31 Migraine 64352732 G43.909 -refilled Anxiety 16377275 F41.9 -continue with therapy and coping mechanisms -exericse- follow up as needed Morbid obesity 961864293 E66.01 -encourage weight loss-check out plexus-hea lthy diet, no added sugars, limited carbs, increase fruits and vegetables [facility] lignant neoplasm of thyroid gland 63933110 C[address] up [address] Alexander [id number] Bailey Hi, PT Physical Therapy, [address] [address] 10/26/2016 08:34:55 11/01/2016 12:52:02 Knee pain 13954252 M25.875 [id number] Bailey Hi, PT Physical Therapy, [address] [address] 10/31/2016 17:01:32 11/01/2016 07:14:55 Knee pain 08713763 M25.613 [id number] Bailey Hi, PT Physical Therapy, [address] [address] 11/03/2016 17:10:27 11/07/2016 07:55:46 Knee pain 84368911 M25.753 [id number] Milana Alexander MD Endocrino logy, [address] [address] 01/05/2017 08:35:28 01/05/2017 09:56:11 History of malignant neoplasm of thyroid 951706377 Z85.850 -monitor thyroglobu rachelle level as send out to [facility] (thyroid cancer monitoring ) Postoperat zully hypothyroidism 43093969 E89.0 -stop synthroid 150mcg by mouth daily 6d a week 1.5 tabs once weekly-sta rt synthroid 125mcg by mouth once daily-add liothyroni ne 5mcg by mouth, 1 tab 5mcg by mouth 2 times daily or 2 tabs by mouth once daily in the am-tsh 3mo -please request additional records, thyroid pathology report, operative report, radioactiv e iodine dose, whole body scans prior to 2009 Fatigue 00863058 R53.83 Gastroesop hageal reflux disease 031700941 K21.9 -omeprazol e [id number] OZIEL Evans , [facility], OFFICE [address] [place] [address] 01/30/2017 16:17:58 01/30/2017 16:45:10 Acute sinusitis 26492552 J01.90 Pt presents today for evaluation of facial pain and congestion that has been persisting for several days. Pt has tried OTC remedies without relief. Pt history and physical exam are consistent with sinusitis. Discussed pathogenes is of sinusitis. Recommend pt continue with the supportive care of nasal saline, steam/hot showers, pushing fluids, ibuprofen or tylenol as needed for pain, cough syrup as needed for cough and rest. Possibly viral. Discussed risk vs benefit of abx treatment. Patient aware of risks and opts to use antibiotic s. . Pt will follow up if symptoms persist or worsen at any time. [id number] Igor Zaldivar DPM Podiatry, [address] [address] 01/31/2017 14:20:04 01/31/2017 14:43:35 Ingrowing toenail 702617194 L60.0 [id number] Igor Zaldivar DPM Podiatry, [address] [address] 03/07/2017 12:30:54 03/08/2017 11:26:00 Ingrowing toenail 720139726 L60.0 [id number] Igor Zaldivar DPM Podiatry, [address] [address] 03/28/2017 15:26:03 03/28/2017 15:56:50 Ingrowing toenail 177212138 L60.0 [id number] Milana Alexander MD Endocrino logy, [facility] [address] [place] [address] 04/24/2017 10:22:38 04/25/2017 08:06:48 Active or passive immunization 721124800 Z23 History of malignant neoplasm of thyroid 906282277 Z85.850 -monitor thyroglobu rachelle level as send out to [facility] (thyroid cancer monitoring ) Postoperat zully hypothyroidism 79742617 E89.0 -increase synthroid 175mcg by mouth once daily-stop synthroid 125mcg daily and liothyroni ne 5mcg by mouth, 1 tab 5mcg by mouth 2 times daily or 2 tabs by mouth once daily in the am-tsh 3mo -please request thyroid pathology report, operative report, radioactiv e iodine dose, whole body scans prior to 2009 if possible Fatigue 92756476 R53.83 Gastroesop hageal reflux disease 987620743 K21.9 -omeprazol e [id number] Igor Zaldivar DPM Podiatry, [facility] [address] [place] [address] 06/28/2017 11:17:33 06/29/2017 13:39:13 Onycholysis 45465396 L60.1 [id number] Stan Nelson MD , [facility], OFFICE [address] [place] [address] 07/12/2017 09:43:49 07/12/2017 10:37:41 Adult health examination 352251346 Z00.00 see Risk Assessment and Lifestyle Change Counseling section above Counseling 555129132 Z71 .9 Depression screening 171 830484 Z13.89 depression screening tool administer ed, entered into emr, scored and discussed, time greater than 7.5 minutes Pain in left knee 552972 7120 23686 M25.562 Postoperat zully hypothyroidism 37919226 E89.0 Migraine with aura 80662 06 G43.109 Active or passive immunization 157835237 Z23 [id number] Mariana Rodriguez NP , [facility], OFFICE [address] [place] [address] 09/22/2017 15:40:39 09/22/2017 18:00:04 Migraine with aura 5927104 G43.109 Ear feels full of water 218187285 R44.8 No signs of infection. Left ear shows sign of perforatio n. Suspect allergies/ onset of URI. Consider ppx treatment, Topamax did not help in past. [id number] Stan Nelson MD , [facility], OFFICE [address] [place] [address] 09/25/2017 17:13:40 09/25/2017 17:31:35 Acute maxillary sinusitis 40422498 J01.00 Migraine with aura 97868 06 G43.933 [id number] Stan Nelson MD , [facility], OFFICE [address] [place] [address] 01/01/2018 10:25:33 01/01/2018 11:14:22 Gastroesophageal reflux disease 360594514 K21.9 Postoperat zully hypothyroidism 81835116 E89.0 Active or passive immunization 352563683 Z23 Migraine with aura 07430 06 G43.109 Fatigue 44185310 R53.83 Blood gluc ose outside reference range 972902576 R73.09 [id number] Jayashree Lynch NP , [facility], OFFICE [address] [place] [address] 02/21/2018 17:05:43 02/22/2018 07:51:41 Acute upper respiratory infection 76731803 J06.9 - rapid strep negative Drink plenty of fluids. Eat healthy foods, lots of fruits and vegetables . Rest when you can. Take ibuprofen 400 mg or acetaminop hen 650 mg every 6 hours as needed for aches or headache and for fever. You can use a Neti pot for nasal congestion or sinus pain/press ure. Elderberry extract and Umcka are herbal remedies that have been shown to reduce length of flu-like symptoms. Gargling with salt water can help your immune system fight off the sore throat. Mix 1/2 teaspoon of salt with 8 oz warm water, gargle for 20-30 secs, and spit out the liquid. Repeat twice daily. Use Sugar free lozenges can help with a sore throat. Wash your hands frequently . Symptoms may worsen for the first 7-10 days before they improve For high fever (>101) for more than 3 days, worsening shortness of breath, cough productive of rust-color ed mucus (not dark yellow), or symptoms unchanged at two weeks, come back in for reassessme nt (urgent care available in [place] office 11-28 and Monday-12 by appointmen t - call after 8AM for appt.) Dry cough can last for up to six weeks. [id number] Nicolás Dwyer MD , [facility], OFFICE [address] [place] [address] 04/24/2018 16:49:09 04/25/2018 10:56:22 Acute upper respiratory infection 37775972 J06.9 Acute asthma 356962722 J 45.901 Influenza caused by Influenza A virus 498006498 J09.X2 [id number] Tammy Lui PA-C , [facility], OFFICE [address] [place] [address] 05/14/2018 09:54:27 05/14/2018 11:30:55 Acute upper respiratory infection 80035902 J06.9 Dyspnea on exertion 6084 5006 R06.09 EKG showed Sinus rhythm 100 bpm. Minor inferior repol disturbanc e, consider ischemia, LV overload or aspecific change. Flat T aVF. TWI III. Discussed with Dr. Carlson who also evaluated the patient who recommende d stress test. Per cardiology ETT is appropriat e given EKG abnormalit ies. ETT ordered.Pt with HR >100 and ambulatory O2 <95%, will check stat d-dimer to rule out PE. Pt aware if d-dimer >500 will need stat imaging to r/o PE. Electrocar diogram abnormal 506781245 R94.31 Acute asthma 030664227 J 45.901 Will treat with Medrol dose pack. Continue albuterol 2 puffs every 4 hours as needed. Recommende d symptomati c treatment of URI with tylenol (not to exceed 3g/day), Mucinex, nasal saline or nasal steroid spray. Follow up with PCP in 1 week, consider starting maintainan ce inhaler for asthma at that time. [id number] MD RABIA Trevino, [facility], OFFICE [address] [place] [address] 05/21/2018 08:25:54 05/21/2018 09:34:21 Intrinsic asthma 144648380 J45.20 Counseling 009593781 Z71 .9 Uncontroll ed type 2 diabetes mellitus 644244935 E11.65 Postoperat zully hypothyroidism 96789730 E89.0 [id number] Miriam Hager , [facility], OFFICE [address] [place] [address] 05/25/2018 09:07:39 05/28/2018 14:17:34 Uncontrolled type 2 diabetes mellitus 639366629 E11.65 [id number] Leeann Dominguez RDN, LDN, [facility] Nutrition -[facility] [address] [place] [address] 05/28/2018 10:09:27 05/28/2018 14:58:21 Uncontrolled type 2 diabetes mellitus 755762570 E11.65 [id number] Stan Nelson MD , [facility], OFFICE [address] [place] [address] 06/11/2018 11:50:19 06/11/2018 13:35:02 Exercise-induced asthma 20771156 J45.990 Uncontroll ed type 2 diabetes mellitus 989263899 E11.65 Counseling 348488096 Z71 .9 Gastroesop hageal reflux disease 341261024 K21.9 Migraine with aura 39185 06 G43.109 Nausea 021173997 R11.0 Body mass index 30+ - obesity 834686569 Z68.38 Postoperat zully hypothyroidism 57336081 E89.0 [id number] Yolie Morales RN, BSN, [facility] DM Education , [address] [address] 06/13/2018 10:58:09 06/14/2018 14:46:26 Uncontrolled type 2 diabetes mellitus 102242437 E11.65 Met with Evan orta for diabetes education, kindly referred by Dr. Mcdaniel.-Rec ent A1C was 8.7% in April.- She has two blood sugars greater than 126 mg/dl, however, she weas not fasting for at least one of them. She was 176 in April and 135 in June of 2017.-She reports she was sick with the flu recently and this caused her asthma to flair up which required steriods to help treat it.-She is scheduled to attend the [facility] Diabetes Education classes with Klarissa Quarles RD.-Downlo ad of her meter reveals she is testing 2x/day. Her fasting blood sugars are ranging between 100-156 mg/dl. Her afternoon or evening blood sugars are ranging between 82-143 mg/dl. Her monthly meter average is 123 mg/dl.-She is currently taking Metformin ER 500 mg, 1 tab every day. She is tolerating it well and intially had side effects but they have improved.- We reviewed the first diabetes class via power point since she was going to miss the first class today. Also gave her all the paperwork to fill out for the next class she attends.-N o changes were made today. She was encouraged to keep up the great work. Recommenda tions:-Con tinue to test blood sugars 2x/day, either fasting or 2 hours after a meal.-Cont inue to bring meter to future appointmen ts for download.- Continue to watch your carbohydra te intake. Aim for 30-45 grams with meals and 15-20 grams with snacks.-Co ntinue to exercise 3x/week for 30-60 minutes.-C ontinue Metformin 500 mg, 1 tab once a day.-Pleas e fill out paperwork for class and bring it with you to next class.-Ple ase call or portal with any questions or concerns. Reviewed the following: Disease Process: Goals of Treatment. Natural progressio n of diabetes Monitoring : Appropriat e times to test blood sugar and target blood sugars. Evaluation of blood glucose results and care of meter and strips. Physical Activity: Introducti on to its importance . Effects of regular physical activity on blood sugars. Chronic Complicati ons: Introducti on to long-term effects, Importance of ABCs (A1c, Blood pressure and Cholestero l control) in limiting cardiovasc ular risk. Other strategies for [facility] heart About[employer]Star. [id number] Milana Alexander MD Endocrino logy, [facility] [address] [place] [address] 08/06/2018 10:01:11 08/06/2018 10:51:00 Postoperative hypothyroidism 37134993 E89.0 -synthroid 175mcg by mouth once daily, brand name only -please request thyroid pathology report, operative report, radioactiv e iodine dose, whole body scans prior to 2009 if possible History of malignant neoplasm of thyroid 525364630 Z85.850 -monitor thyroglobu rachelle level as send out to [facility] (thyroid cancer monitoring ) Gastroesop hageal reflux disease 758187950 K21.9 -omeprazol e, weaning Uncontroll ed type 2 diabetes mellitus 939259035 E11.65 -noom -joined gym, 2x/week circuit of weights, bicycle -you love going to the gym, mark -check sugar 2x/d-domingo nue to lose weight-winston id prednisone and other glucocorti coid/stero ids-metfor min 500mg er, 1 tab 500mg by mouth once daily -suggest a statin, you will think this over [id number] Stan Nelson MD , [facility], [address] [place] [address] 08/13/2018 09:37:17 08/13/2018 12:08:24 Uncontrolled type 2 diabetes mellitus 588470335 E11.65 Tick bite without infection 422616521 T14.8XXA Active or passive immunization 622967158 Z23 Body mass index 30+ - obesity 761530916 Z68.36 [id number] Stan Nelson MD , [facility], [address] [place] [address] 03/01/2019 09:26:05 03/01/2019 14:42:35 Type 2 diabetes mellitus without complication 024672202 E11.9 Allergic a sthma without status asthmaticus 95021967 J45.909 Postoperat zully hypothyroidism 99192201 E89.0 Body mass index 30+ - obesity 689510794 Z68.36 [id number] Trudi Howard PA-C , [facility], [address] [place] [address] 03/15/2019 08:57:08 03/15/2019 12:20:31 Acute pharyngitis 878233653 J02.9 Acute sinusitis 08242302 J01.90 Prolonged URI sxs. Negative flu and strep tests. Seen at urgent care last Monday. Will tx for bacterial sinusitis with Augmentin and advised nasal saline, steaming.I f symptoms persist or acutely worsen, please return to office or go to urgent care if needed. Pt understand s and agrees with plan.Lungs clear-do not take Medrol dose della given at urgent care at this point. [id number] Stan Nelson MD , [facility], OFFICE [address] [place] [address] 09/20/2019 08:22:24 09/23/2019 13:54:16 Adult health examination 071173770 Z00.00 see Risk Assessment and Lifestyle Change Counseling section above Counseling 024969983 Z71 .9 including cardiovasc ular risk reduction counseling Depression screening 171 837857 Z13.89 depression screening tool administer ed, entered into emr, scored and discussed, time greater than 7.5 minutes Screening for alcohol abuse 236361526 Z13.39 Allergic a sthma without status asthmaticus 82967874 J45.909 Exercise-i nduced asthma 38869070 J45.990 Impaired f asting glycemia 314085386 R73.01 Body mass index 30+ - obesity 236166779 Z68.36 Migraine 72321788 G43.90 9 [id number] Milana Alexander MD Endocrino logy, [facility] [address] [place] [address] 09/25/2019 08:14:23 09/25/2019 11:58:34 Postoperative hypothyroidism 81419718 E89.0 -stop synthroid 150mcg by mouth once daily, brand name only-start armour 90mg by mouth once daily -tsh 6 wk, 3mo and as needed -follow up benjamin -please request thyroid pathology report, operative report, radioactiv e iodine dose, whole body scans prior to 2009 if possible History of malignant neoplasm of thyroid 665892441 Z85.850 -monitor thyroglobu rachelle level as send out to [facility] (thyroid cancer monitoring ), next 10/14 Gastroesop hageal reflux disease 185140162 K21.9 -omeprazol e Uncontroll ed type 2 diabetes mellitus 585439607 E11.65 -noom-avoi d prednisone and other glucocorti coid/stero ids-metfor min 500mg er, 1 tab 500mg by mouth once daily -suggest a statin, you decline a statin, you do not think you need it [id number] Ayala Kinney, ANIVAL, [employer] , [facility], [address] [place] [address] 12/11/2019 12:18:13 12/13/2019 12:35:14 Pre-surgery evaluation 281292195 Z01.818 Needs in office cardiac eval, w EKG and labs as ordered Primary de lignant neoplasm of thyroid gland 93587014 C73 1994, surgical hypothyroi d on supplement ation and followed by endocrine. Exercise-i nduced asthma 96272929 J45.990 Rare albuterol use, encouraged to bring to surgery. Gastroesop hageal reflux disease 478217427 K21.9 Stable on omeprazole Postoperat zully hypothyroidism 77649500 E89.0 Followed by endocrine and takes supplemena tion Uncontroll ed type 2 diabetes mellitus 413696861 E11.65 followed by endocrine, HgA1c < 6.5, at goal. On Metformin. CR normal. EKG neededREvi ewed with Dr. Dwyer [id number] Ayala Kinney, DNP, [employer] , [facility], [address] [place] [address] 01/01/2020 16:08:30 01/03/2020 14:58:27 Pre-surgery evaluation 666654624 Z01.818 EKG completed, compared to previous. Has negative stress test May 2018 which was normal.rev iewed wit HDr. Ahn.H as Labs pending and hx of thyroid supplement ationClear ed for surgery pending labs. THank you. See attached EKG. Tachycardia 2960314 R00. 0 EKG completed- will review with .Hx of thyroid supplement ation, and elevated HR. [id number] Elenita Castro CMA , [facility], [address]ICE [address] [place] [address] 01/16/2020 07:36:03 01/17/2020 17:18:50 Active or passive immunization 907692871 Z23 [id number] Milana Alexander MD Endocrino logy, [address] [address] 01/22/2020 07:49:15 01/22/2020 16:04:04 Postoperative hypothyroidism 47618467 E89.0 -armour 120mg by mouth once daily -tsh 3mo and as needed -follow up benjamin -please request thyroid pathology report, operative report, radioactiv e iodine dose, whole body scans prior to 2009 if possible Uncontroll ed type 2 diabetes mellitus 273281486 E11.65 -noom-avoi d prednisone and other glucocorti coid/stero ids-metfor min 500mg er, 1 tab 500mg by mouth once daily -suggest a statin, you decline a statin, you do not think you need it History of malignant neoplasm of thyroid 646534636 Z85.850 -monitor thyroglobu rachelle level as send out to [facility] (thyroid cancer monitoring ), next 10/14 Gastroesop hageal reflux disease 109681921 K21.9 -omeprazol e [id number] Stan Nelson MD , [facility], OFFICE [address] [place] [address] 03/16/2020 10:27:43 03/17/2020 11:49:44 Moderate persistent asthma 019764198 J45.40 (symptoms or bronchodil ator use daily) PERSISTENT {{moderate * severe}} Based on history, physical assessment , and peak flow, the patient's asthma {{is is not}} in control. See orders for adjustment in plan. The asthma action plan has been discussed. The patient verbalizes understand ing of medication use. The patient is in agreement with this plan. Postoperat zully hypothyroidism 96365139 E89.0 Type 2 isamar betes mellitus without complication 439732891 E11.9 Gastroesop hageal reflux disease 580341059 K21.9 Migraine with aura 47148 06 G43.088 [id number] Milana Alexander MD Endocrino logy, [facility] [address] [place] [address] 05/06/2020 07:36:40 05/06/2020 19:49:03 Postoperative hypothyroidism 37005988 E89.0 -armour 120mg by mouth once daily -tsh 6mo and as needed -follow up Benjamin -records not available from past (thyroid pathology report, operative report, radioactiv e iodine dose, whole body scans prior to 2009) Uncontroll ed type 2 diabetes mellitus 928416415 E11.65 -noom -avoid prednisone and other glucocorti coid/stero ids -metformin 500mg er, 1 tab 500mg by mouth once daily -suggest a statin, you decline a statin, you do not think you need it History of malignant neoplasm of thyroid 916232438 Z85.850 -monitor thyroglobu rachelle level as send out to [facility] (thyroid cancer monitoring ) -ultrasoun d neck 09/03/20 order per your preference Gastroesop hageal reflux disease 276216337 K21.9 -omeprazol e [id number] Milana Alexander MD Endocrino logy, [address] [address] 07/09/2020 11:08:25 07/09/2020 18:33:19 Uncontrolled type 2 diabetes mellitus 509994943 E11.65 -noom -avoid prednisone and other glucocorti coid/stero ids -metformin 500mg er, 1 tab 500mg by mouth once daily -suggest a statin, you decline a statin, you do not think you need it Postoperat zulyl hypothyroidism 15675123 E89.0 -return to synthroid 175mcg by mouth once daily, brand name medically necessary -you have had worsening of thyroid tests on generic levothyrox ine in the past -records not available from past (thyroid pathology report, operative report, radioactiv e iodine dose, whole body scans prior to 2009) Gastroesop hageal reflux disease 062886226 K21.9 -omeprazol e History of malignant neoplasm of thyroid 165422705 Z85.850 -monitor thyroglobu rachelle level as send out to [facility] (thyroid cancer monitoring ) -ultrasoun d neck 08/25/20 Asthma 549636055 J45.90 9 [id number] Rocio Ahn , [facility], [address] [place] [address] 08/12/2021 11:32:19 2021 14:33:35 COVID-19 373916911 U07.1 Discussed medication s; will check stat BMP and prescribe paxlovid based on renal function. Asthma 293706360 J45.90 9 Refilled. Insect bit e, nonvenomous, of foot 984813073 S90.862D Healing, may have some discolorat ion but will hopefully fade out. [id number] Stan Nelson MD FP, [facility], [address] [place] [address] 09/16/2021 15:59:46 09/16/2021 17:13:43 Adult health examination 805672225 Z00.00 see Risk Assessment and Lifestyle Change Counseling section above Counseling 792025779 Z71 .9 including cardiovasc ular risk reduction counseling Depression screening 171 397894 Z13.31 depression screening tool administer ed, entered into emr, scored and discussed, time greater than 7.5 minutes Screening for alcohol abuse 591893669 Z13.39 Mild inter mittent asthma 263834178 J45.20 (symptoms or bronchodil ator use at most two days per week) Based on history, physical assessment , and ACT, the patient's asthma is in control. Will continue the present medication s and follow up in 6 months. The asthma action plan has been discussed. The patient verbalizes understand ing medication use.. The patient is in agreement with this plan. Screening for malignant neoplasm of colon 424271284 Z12.11 Referral for a DIRECT booked colonoscop y. This patient is a healthy ASA Class 1 or 2 patient (only mild systemic disease), or a STABLE, well controlled insulin dependent diabetic. They do not have serious cardiac disease ie DC/angiopl asty within 1 year, symptomati c CHF; renal failure with CKD 4 or 5; take Coumadin, Plavix, Aggrenox, etc. Screening for malignant neoplasm of cervix 031312283 Z12.4 Uncontroll ed type 2 diabetes mellitus 539029989 E11.65 Allergic a sthma without status asthmaticus 03281432 J45.909 Postoperat zully hypothyroidism 09255907 E89.0 Foot callus 184358031 L8 4 [id number] Milana Alexander MD Endocrino logy, [facility] [address] [place] [address] 11/03/2021 15:52:09 11/03/2021 16:59:44 Uncontrolled type 2 diabetes mellitus 942599166 E11.65 -noom -metformin 500mg er, 2 tabs 1000mg by mouth once daily -suggest a statin, you decline a statin -add ozempic 0.25 mg subcut in the belly, thigh, or upper arm once weekly for 4 weeks then increase to 0.5mg once weekly as tolerated; rotate injection sites -may increase to 1 mg once weekly after 2 mo as tolerated if sugars remain above goal, script will be available if you would like this -if you are tolerating 1mg once weekly well for a month, may increase to 2mg subcut once weekly as tolerated Postoperat zully hypothyroidism 33730291 E89.0 -increase synthroid 200mcg tabs, 2 tabs by mouth once weekly, 1 tab by mouth once daily 6d a week, 8 tabs weekly, mean daily dose 229mcg, brand name medically necessary -you have had worsening of thyroid tests on generic levothyrox ine in the past -records not available from past (thyroid pathology report, operative report, radioactiv e iodine dose, whole body scans prior to 2009) -aim for 0.4 to 2 tsh History of malignant neoplasm of thyroid 126491976 Z85.850 -monitor thyroglobu rachelle level as send out to [facility] (thyroid cancer monitoring ) -ultrasoun d neck 08/25/20 [id number] Ayala Kinney, ANIVAL, [employer] , [facility], [address] [place] [address] 05/05/2022 14:55:04 05/06/2022 07:52:52 Vomiting 174208516 R11.10 Now resolving, tolerating PO. No evidence of acute dehydratio n.-ondanse huma as needed and prescribed for vomiting -push clear fluids, discussed pedialyte short term-NAD-n o evidence of bacterial infection- covid test pending and flu test NEGATIVEFo llow up if new or worsening symptoms Elevated blood-pressure reading without diagnosis of hypertension 439753738 R03.0 recheck at wellness Nausea 248299634 R11.0 [id number] Mariana Rodriguez NP , [facility], [address] [place] [address] 05/06/2022 17:01:50 05/09/2022 09:29:03 Active or passive immunization 441458886 Z23 Flu: Screening for disorder 363266807 Z11.59 COVID-19 909339160 U07.1 Discussed that oral Paxlovid is preferred treatment. Most likely to help prevent severe illness or hospitaliz ation. Must be started within 1st 5d however. Referral can be sent for MAB and may be eligible for that. Allergic a sthma without status asthmaticus 25889086 J45.909 Morbid obesity 334015979 E66.01 Uncontroll ed type 2 diabetes mellitus 110594206 E11.65 metformin [id number] ESTHER Gonzales , [facility], [address] [place] [address] 01/06/2023 16:00:25 01/11/2023 12:30:07 Active or passive immunization 795135240 Z23 flu - will get today 01/06/23 cc Screening for malignant neoplasm of colon 537713498 Z12.11 declines Hyperglyce kristian due to diabetes mellitus 897261662 E11.65 recent A1C 12.7, last year 11.2non-co mpliant with trulicity (was unable to bring herself to do the injection) or visits since last checkconti nujames on metformin 1000mg BIDimporta nce of controlled diabetes discussed in detail with pt, she's willing to try a GLP1 again, declines insulin; will bring her in w/ nursing or diabetes ed for her first dose as she's very anxious to do this herself and plan on f/u 1 month after starting with repeat A1CPA denial for wil 10/2021, will try mounjaro, otherwise may have to do the trulicity (though she is more hesitant about this medication due to online sources), consider oral medication to start if there's too long of a delay with [id number] f/u with endocrine scheduled in Apr 2023eye exam UTD, will plan on foot exam at follow up [facility] ed type 2 diabetes mellitus 227175209 E11.65 You have been prescribed a new medication called Mounjaro. It is a once weekly injection which has been shown to reduce blood sugars effectivel y and allow some weight loss and appetite suppressio n in most patients. Weight loss in trials ranged from 12 to 25lbs. - Start by taking 2.5mg weekly. This is often just a starting dose to get used to the medication , and nearly all patients will need to increase the dose to lower blood sugars to goal.- Try to take the medication on the same day each week, but you can change the day of the dose as long as it has been at least two days since your last dose.- If you miss a dose, take the missed dose as soon as possible within 5 days of the due date. If it has been more than five days, skip the missed dose and take your next dose on schedule in two days.- If not at goal in four weeks, your provider will increase the dose to 5mg weekly. This will be a new prescripti on at the pharmacy. Injection: - Store the pens you are not using in the refrigerat or. On the day of your injection, take one pen out to allow the medication to come to room temperatur e.- You can inject the medication in either the abdominal fat, upper arm or the outer thigh. Wipe the area you choose with an alcohol wipe before injection. Rotate the injection site each week.- Remove the rondon base cap off of the pen and throw it in the trash.- Place the clear base on the skin and twist to unlock at the top.- Press the button at the top of the pen, and wait for 10 seconds. You should hear two ? c licks.? - Place the entire pen into a sharps container. You can receive sharps containers from your insurance company or most [facility] have them available for free.- If after another 4 weeks your blood sugar is not at goal, your provider will increase the dose to the next dose. This dose would come in a separate pen. Side effects/Co ntraindica tions:- Common initial side effects are abdominal upset with nausea, diarrhea, or constipati on. These often improve with each injection as your body adjusts to the medication . Eat small meals, stick to bland foods, and avoid greasy or sweet foods while the symptoms last. If the symptoms are severe or not improving, contact your provider.- Please tell your provider if you or a family member have a history of medullary thyroid cancer, MEN2, or if you have a history of diabetic retinopath y, acute gallbladde r disease, gastropare sis or pancreatit is.- Mounjaro is not for use in children under 18, or in or . - Doses of sulfonylur eas or insulin should be lowered when this medication as started as hypoglycem ia is possible. Postoperat zully hypothyroidism 86524048 E89.0 history papillary thyroid carcinoma s/p thyroidect suzan in 1994follow ing with endocrineo n synthroid History of malignant neoplasm of thyroid 822222217 Z85.850 as above Counseled by member of primary health care team 540451499 Z71.9 Today we discussed ways to reduce your 10-year cardiovasc ular disease risk. Things that decrease risk for cardiovasc ular events include eating a diet high in fiber (fruits and vegetables ) and low in simple carbohydra gomez (bread, rice, pasta, alcohol, potatoes), decreasing processed foods, limiting juice and alcohol, limiting saturated fats (butter, ice cream, and cheeses), and adding regular daily activity. Having blood pressure that is <130/80. Having well controlled cholestero l (LDL and triglyceri cande) by eating a healthy diet and taking medication s when necessary. Managing daily stress with meditation or yoga. Depending on your other cardiovasc ular risks your practition er may recommend taking daily aspirin. declines statin Microalbum inuric diabetic nephropathy 111965555 E11.21 reviewed labscurren tly not on omkar/arb at this timeplan for diabetes control to start as abovewill continue to monitor [id number] Nighat Carrillo RN BSN , [facility], OFFICE [address] [place] [address] 6 02/14/2023 15:34:51 02/15/2023 12:35:39 Uncontrolled type 2 diabetes mellitus 763551952 E11.65 [id number] Stan Nelson MD , [facility], OFFICE [address] [place] [address] 6 05/29/2023 13:32:44 05/29/2023 15:10:28 Migraine with aura 0416339 G43.109 Uncontroll ed type 2 diabetes mellitus 670443586 E11.65 Hypothyroidism 20029871 E03.9 [id number] Stan Nelson MD , [facility], OFFICE [address] [place] [address] 6 06/02/2023 15:36:36 06/05/2023 13:13:32 Migraine with aura 2547124 G43.109 Uncontroll ed type 2 diabetes mellitus 462129545 E11.65 Postoperat zully hypothyroidism 12911770 E89.0 [id number] Stan Nelson MD , [facility], OFFICE [address] [place] [address] 6 08/04/2023 15:47:49 08/04/2023 16:51:01 Postoperative hypothyroidism 52071255 E89.0 will get labs on Monday, for now will continue with current regimen Migraine with aura 91264 06 G43.109 agreeable to try Ajovy once a month for migraine prevention has rizatripta n to use for acute attackszof ran refill sent, effectivef /u in 3 months. Uncontroll ed type 2 diabetes mellitus 237994638 E11.65 DM2 - discussed labs, A1c still not at goal of less than 7%; however, significan tly improved with Trulicity, well managed with lifestyle will increase dose to 3 mg per week and pt will finish her 1.5 mg dose weekly.* recheck A1c in 3 months, f/u in 3 months.* See your eye doctor every year to monitor for diabetic retinopath y.* For any changes in your medication regimen, please call the office in the interim if with any intoleranc e to medication s. Morbid obesity 868864624 E66.01 will work on exercise and portion controlTru licity should help Screening for malignant neoplasm of colon 650814602 Z12.11 prefers to submit stool kitspt states she had colonoscop y done at [facility] recently, we will request [id number] Stan Nelson MD , [facility], [address] [place] [address] 08/07/2023 08:41:53 08/08/2023 12:21:21 Adult health examination 466712473 Z00.00 see Risk Assessment and Lifestyle Change Counseling section above* Maintain 1200 mg of calcium from food sources daily, * Take vitamin D 6136-6968 units daily to help absorption of calcium into your bones * Use sunblock consistent ly * Review the website: [employer] to get more informatio n on the Mediterran jaskaran diet - a heart healthy eating plan * Review this website: https://ian w.[employer]/al l-about-go od-and-keo ap for healthy inexpensiv e meals. * The current guidelines from the [place] [employer] n is moderate aerobic physical activity about 30 minutes for 5 days of the week. Walking at a moderately fast pace, as tolerated. Try to build muscle mass. This will help maintain bone strength and support your joints. * Health care proxy discussed and no changes. * Wellness Visit in 1 year * See your dentist at least twice a year. * Get your vision checked at least once every 2 years. * Saturated fat is a bad kind of fat. For a heart healthy diet, 16 grams of saturated fat per day for women and 20 grams of saturated fat per day for men. Depression screening 171 041347 Z13.31 depression screening tool administer ed Screening for alcohol abuse 583428009 Z13.39 Alcohol use screening tool administer ed Migraine with aura 10076 06 G43.109 agreeable to try Ajovy once a month for migraine prevention has rizatripta n to use for acute attackszof ran refill sent, effectivef /u in 3 months. Postoperat zully hypothyroidism 25427944 E89.0 will get labs today, for now will continue with current regimen Screening for malignant neoplasm of colon 567700132 Z12.11 Declines Colon, stool cards Allergic a sthma without status asthmaticus 28820172 J45.[address] Montgomery, used only in the winter Congenital stricture of ureteropelvic junction 62594686 Q62.11 Gastroesop hageal reflux disease 121871500 K21.9 evidence of fundoplica tion in the cardia on EGD in 2018unable to taper off omeprazole due to symptomsta gbaby once a day and no concerns.f olnohemis [facility] regularly. Uncontroll ed type 2 diabetes mellitus [id number] E11.65 DM2 - discussed labs, A1c still not at goal of less than 7%; however, significan tly improved with Trulicity, well managed with lifestyle will increase dose to 3 mg per week and pt will finish her 1.5 mg dose weekly.* recheck A1c in 3 months, f/u in 3 months.* See your eye doctor every year to monitor for diabetic retinopath y.* For any changes in your medication regimen, please call the office in the interim if with any intoleranc e to medication s. [id number] Stan Nelson MD , [facility], [address] [place] [address] 11/09/2023 15:48:37 11/11/2023 19:50:22 Screening for malignant neoplasm of cervix [id number] Z12.4 overdue for pap - [facility] [place] send me a message via portal when her appt is Uncontroll ed type 2 diabetes mellitus [id number] E11.65 DM2 - discussed labs, A1c still not at goal of less than 7%; however, significan tly improved with Trulicity, well managed with lifestyle , unable to find 3 mg dose of Trulicity and has only been on 1.5 mg since the last visit.* will try Ozempic and start at low dose. 0.25 mg x 4 weeks then 0.5 mg for 4 weeks* will let me know if meds are unavailabl e.* recheck A1c in 3 months, f/u in 6 months with labs prior* wellness in July 2024* See your eye doctor every year to monitor for diabetic retinopath y. - up to date 2023* For any changes in your medication regimen, please call the office in the interim if with any intoleranc e to medication s. Migraine with aura [id number] 06 G43.109 Nurtec and Aijovy not covered by insurancew ill continue with rizatripta n for now as needed Postoperat zully hypothyroidism [id number] E89.0 TSH in range, continue with current regimenreq uesting repeat test in 3 months [id number] ESTHER Byrnes FP, [facility], [address] [place] [address] 12/20/2023 09:13:16 12/20/2023 10:25:23 Active or passive immunization [id number] Z23 flu 24- declines wants to wait Pain of ear [id number] H9 2.09 as aboveno gross abnormalit ies on exam Acute sinusitis 62906461 J01.90 Encourage force fluids, steam inhalation as needed, adequate rest.Will start flonase and sudafedSTO P amoxicilli n at this time, likely contributi ng to nausea and no indication of bacterial illnessAdv ised current guidelines no abx until >3 weeks sx or worsening with fever/sánchez ge in nasal dischargeF ollow up if not improving or symptoms worsening. Migraine [id number] G43.90 9 feeling slightly improved following toradoloff ered today --declines due to rash last night with inj and feeling bettercont inue Excedrin as neededstay hydrated and rest [id number] Stan Nelson MD FP, [facility], [address] [place] [address] 04/08/2024 17:13:06 04/08/2024 17:48:10 Upper respiratory infection [id number] J06.9 Patient presents with symptoms consistent with viral infection. No evidence of pneumonia on exam. Discussed supportive care: pushing fluids, rest, nasal saline and Mucinex as needed. Encouraged to follow up if symptoms persist for more then 10 days or if they are worsening. Discussed natural course of viral illnesses and lack of evidence for treating with antibiotic s. Uncontroll ed type 2 diabetes mellitus [id number] E11.65 T2 DM not well controlled , last A1c was in Oct 2023, will get labs today Postoperat zully hypothyroidism 46695290 E89.0 TSH in range, last Oct 2023. Has not been feeling well for a while, will recheck today. Fatigue 36616701 R53.83 r/o anemia and any electrolyt e abnormalit ies [id number] Stan Nelson MD , [facility], [address] [place] [address] 04/12/2024 15:28:48 04/15/2024 11:57:09 Iron deficiency anemia 13685234 D50.9 Iron Deficiency AnemiaSign ificant anemia with hemoglobin of 8, down from 9. No heavy menstrual bleeding, chest pain, or severe shortness of breath. Reports occasional nosebleeds and hemorrhoid s. Iron supplement ation previously caused reflux issues.-St art slow-relea se iron supplement ation daily.-Con bend up iron infusions if oral iron is not tolerated. -Check stool color regularly for signs of gastrointe stinal bleeding. Gastroesop hageal reflux disease 258719196 K21.9 evidence of fundoplica tion in the cardia on EGD in 2019Report s reflux issues with iron supplement ation. Currently on omeprazole once daily.-If having reflux issues with slow release iron, will increase omeprazole 20 mg to twice a dayFollow- up in one month to assess response to changes in medication . Blood work in two months to check TSH. Uncontroll ed type 2 diabetes mellitus [id number] E11.65 DM2 - discussed labs, A1c NOT at goal of less than 7%; well managed with lifestyle and medication s, continue meds * See your eye doctor every year to monitor for diabetic retinopath y.A1c improved but still elevated. Currently on Ozempic 0.5mg weekly.-In crease Ozempic to 1mg weekly.-If symptoms worsen, consider switching to Mounjaro. * Review this website: [email or web address] dominguez-about-go od-and-keo ap for healthy inexpensiv e meals. Continue to try a plant-base d diet, try to do moderate physical activity for 30 minutes 5 days a week. * For any changes in your medication regimen, please call the office in the interim if with any intoleranc e to medication s.Type 2 Diabetes-C ontinue monitoring blood glucose levels. Postoperat zully hypothyroidism 24388318 E89.0 TSH in range but should be closer to 1.0Current ly on Synthroid 200mcg six days a week.-Incr ease Synthroid to 200mcg daily.-Rec heck TSH in two months. Counseled by member of primary health care team [id number] Z71.9 Today we discussed ways to reduce your 10-year cardiovasc ular disease risk. Things that decrease risk for cardiovasc ular events include eating a diet high in fiber (fruits and vegetables ) and low in simple carbohydra gomez (bread, rice, pasta, alcohol, potatoes), decreasing processed foods, limiting juice and alcohol, limiting saturated fats (butter, ice cream, and cheeses), and adding regular daily activity. Having blood pressure that is <130/80. Having well controlled cholestero l (LDL and triglyceri cande) by eating a healthy diet and taking medication s when necessary. Managing daily stress with meditation or yoga. Depending on your other cardiovasc ular risks your practition er may recommend taking daily aspirin. Elevated blood-pressure reading without diagnosis of hypertension 144055069 R03.0 will have school nurse check BP [id number] ESTHER VARGHESE, [facility], [address] [place] [address] 05/09/2024 15:21:24 05/09/2024 17:16:11 Upper respiratory infection 86042999 J06.9 Patient presents with symptoms consistent with viral infection. No evidence of pneumonia on exam. Discussed supportive care: pushing fluids, rest, nasal saline and Mucinex as needed. Encouraged to follow up if symptoms persist for more then 10 days or if they are worsening. Discussed natural course of viral illnesses and lack of evidence for treating with antibiotic s. Influenza caused by Influenza B virus [id number] J10.1 Supportive care as above. Patient should return to office as needed for any new, persistent , or worsening symptoms. [id number] Nicolás Dwyer MD , [facility], [address] [place] [address] 05/22/2024 16:17:01 05/22/2024 17:58:20 Active or passive immunization [id number] Z23 flu - pt just got over flu 05/22/24 cc Screening for malignant neoplasm of cervix 997423405 Z12.4 Reminded pt, she goes to [place] and needs to make an appointmen t 05/22/24 cc Asthma [id number] J45.90 9 Microcytic anemia 046320 [id number] Sexton's office . check iron def. Nausea and vomiting [id number] R11.2 Health Concerns Section Related Observation LastModified by Organization Detai ls LastModified Time None Recorded Concern Status LastModified by Organization Details LastModified Time None Recorded Advance Directives Directive None Recorded Payers Encounter Date Sequence Insurance Name Policy Number Policy Navarrete Covered Member ID Navarrete Member ID Guarantor Name 12/20/2023 1 [facility]) [id number] Evan Wilson [id number] Evan Wilson 04/08/2024 1 [facility]) [id number] Evan Wilson [id number] Evan Wilson 04/12/2024 1 [facility] [id number] Evan Wilson [id number] Evan Wilson 05/09/2024 1 [facility]) [id number] Evan Wilson [id number] Evan Wilson 05/22/2024 1 [facility] [place] [id number] Evan Wilson [id number] Evan Wilson Notes Date Note Type Note Provider Name and Address Organization Details Recorded Time 12/20/2023 text/html 12/20/23was seen for ear pain by a tele health doc with her insurancefeels pressure/fluid in ear started Mondayfelt impacted --monday morning --on abxfeeling worse sinus pressurestarted monday/monday went to last night for migraine and nausea and had toradol shot which helped with migrainerash after, took benedryl feeling fatigued, feeling fevery but no tempbody aches excedrin migraine and sinus medicine didn't helptylenol pm helped with sleep only no coughingCOVID tests negative ESTHER Byrnes [address] [place], [address], [facility] 12/20/2023 09:55:13 04/08/2024 text/html Pt c/o: Sxs elmer ral wks, fatigue, can sleep for hrs sleep 9-10 hrs during the day and 9-10 during the night, Sinus pressure, Ear pressure, ? perforation in L ear, Nausea, Feels nausea and will cause her to sneeze. Vomiting occ in the AM, loose stool, feels feverish but not febrile, having night sweatsdenies: sore throatUsing Flonase, not helping, getting bloody mucus,very fatiguedblood pressure is high and no follow up for DMpt concerned her thyroid levels are offnew job last Nov Stan Nelson MD [address] [place], [address], [facility] 04/10/2024 14:01:10 04/12/2024 text/html Patient informed and consents to use of AI assisted recording to improve documentation of visit.Word substitution may have occurred and may have gone unnoticed and uncorrected. The patient, with a known history of anemia, diabetes, and thyroid issues, presents with worsening fatigue and headaches over the past month. The patient describes the fatigue as being bone tired and the headaches as persistent. The patient also reports daily episodes of nausea. The patient has noticed these symptoms have worsened despite being on Ozempic for diabetes for the past four months. The patient also mentions a history of reflux issues, which have previously been exacerbated by iron supplements. The patient has a family history of kidney disease, which is a source of concern for her. The patient's blood sugar levels have been high, with an average reading of 226, despite medication. The patient also reports a history of anemia, with recent blood work showing a decrease in hemoglobin levels. The patient is not currently taking iron supplements due to previous issues with reflux. The patient's thyroid levels, while within normal range, have shown some fluctuation.- Mother had a kidney transplant- Mother of kidney failure- Aunt of kidney failure Stan Nelson MD [address] [place], [address], [facility] 04/14/2024 09:08:56 05/09/2024 text/html URIReported bypatient.SymptomsPat ient presents with upper respiratory symptoms for 4 days; no nasal congestion; no fever;chills;cough;sp utum; no sore throat; no facial pain; no ear pain;fatigue;headache ;history of asthma or COPD; home COVID test neg; OTC meds include: tylenol cold and flu Sick since MondayFlu-like, PND, phlegm cough.Chest tightness, taking inhaler.SOB, vomiting, fevers, chills, aches.Mild congestion. 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 ESTHER VARGHESE [address] [place], [address], [facility] 05/09/2024 17:19:07 05/22/2024 text/html Here for a visit to f/u ? iron def. Took marianna iron bisglycinate- but hurt her stomach. no ferritin or iron studies in chart Had reflux surgery. age 20 - fundoplication long-standing prilosec Has a known history of anemia, diabetes, and thyroid issues, presents with worsening fatigue and headaches over the past month. The patient describes the fatigue as being bone tired and the headaches as persistent. The patient also reports daily episodes of nausea. The patient has noticed these symptoms have worsened despite being on Ozempic for diabetes for the past four months. The patient also mentions a history of reflux issues, which have previously been exacerbated by iron supplements. The patient has a family history of kidney disease, which is a source of concern for her. The patient's blood sugar levels have been high, with an average reading of 226, despite medication. The patient also reports a history of anemia, with recent blood work showing a decrease in hemoglobin levels. The patient is not currently taking iron supplements due to previous issues with reflux.- Mother had a kidney transplant- Mother of kidney failure- Aunt of kidney failure Her kidney labs normal. No witnessed apnea. gagging sometimes after sinus surgery- on flonase. [place]- allergy shots. Nicolás Dwyer MD [address] [place] [address], [phone], [facility] 05/22/2024 16:57:57 OBGyn Episode No OBEpisode recorded.
[2024-06-29 10:16] LABS: MANUAL DIFF FLAG NO
[2024-06-29 11:21] LABS: Basophils Percent Auto 0.6 % (0-2); Eosinophils Absolute Auto 0.2 X10*3/uL (0.0-0.4); Eosinophils Percent Auto 2.1 % (0-4); Hematocrit 39.6 % (37.0-47.0); Hemoglobin 12.4 g/dl (12.0-16.0); Imm Gran Abs Auto 0.02 X10*3/uL (0.00-0.03); Imm Gran Pct Auto 0.3 % (0.0-0.4); Lymphocytes Percent Auto 27.9 % (20-40); Mean Corpuscular HGB Conc 31.3 g/dl (31.0-35.0); Mean Corpuscular Hemoglobin 23.7 pg (27.0-33.0); Mean Corpuscular Volume 75.6 fL (80.0-98.0); Mean Platelet Volume 10.5 fL (9.4-12.3); Monocytes Absolute Auto 0.4 X10*3/uL (0.1-1.2); Monocytes Percent Auto 6.1 % (2-11); Neutrophils Absolute Auto 4.4 x10*3/uL (2.0-8.3); Platelet Count 295 X10*3/uL (160-400); Red Blood Count 5.24 X10*6/uL (4.20-5.50)
[2024-06-29 11:55] LABS: Alanine Aminotransferase 29 U/L (0-31); Albumin Level 4.2 g/dL (3.5-5.0); Alkaline Phosphatase 61 U/L (39-117); Anion Gap 12 (12-20); Aspartate Amino Transferase 28 U/L (5-31); Bilirubin Total 0.3 mg/dL (0.0-1.0); Blood Urea Nitrogen 15 mg/dL (9-16); C Reactive Protein 1.01 mg/dL (< or = 0.50); Calcium 9.8 mg/dL (8.4-10.2); Carbon Dioxide 25 mmol/L (22-29); Chloride 107 mmol/L (96-108); Estimated Glomerular Filt Rate > 60; Glucose Random 130 mg/dL (60-115); Iron 78 mcg/dL (30-160); Magnesium 1.7 mg/dL (1.6-2.6); Percent Iron Saturation 29 % (15-50); Potassium 4.1 mmol/L (3.3-5.1); Sodium 140 mmol/L (135-145); Total Iron Binding Capacity 272 mcg/dL (228-428); Total Protein 7.2 g/dL (6.5-8.0); Unsaturated Iron Binding 194 ug/dL
[2024-06-29 11:57] LABS: Erythrocyte Sedimentation Rate 14 MM/HR (0-20)
[2024-06-29 12:10] LABS: Ferritin 369 ng/mL (10-250)
[2024-06-29 12:22] LABS: Folate 6.4 ng/mL (> or = 4.0); Vitamin B12 861 pg/mL (200-900)
[2024-07-03 01:32] LABS: Methylmalonic Acid 87 nmol/L (55-335)
[2024-07-03 05:53] LABS: Gliadin Deamidated IgA Ab <1.0 U/mL; Gliadin Deamidated IgG Ab 1.5 U/mL; Immunoglobulin A 160 mg/dL (47-310); Transglutaminase Ab IgG <1.0 U/mL; Transglutaminase IgA <1.0 U/mL
== END 2024-06-29 09:57 | disposition home or self-care (01) ==
LOC: HO.LAB 09:56
PROVIDERS: PCP Family Medicine; Visit Provider Nurse Practitioner Family
DX: E61.1 Iron deficiency (principal); E87.6 Hypokalemia; D64.9 Anemia, unspecified
CPT/HCPCS: 36415; 80053; 82607; 82728; 82746; 82784; 83540; 83735; 83921; 85025; 85652; 86140; 86258; 86364